=== PATIENT | male | born 1930 | race Caucasian/White ===

== ENCOUNTER → 2016-09-23 | Outpatient (CLI) | payer MEDICARE, OTHER ==
--- NOTE | 2016-09-23 16:59 | CT ---
EXAMINATION TYPE: CT chest wo con DATE OF EXAM: 09/23/2016 4:44 PM COMPARISON: CT chest March 17, 2016 HISTORY: Shortness of breath per order. CT DLP: 752 mGycm. Automated Exposure Control for Dose Reduction was Utilized. TECHNIQUE: CT scan of the thorax is performed without IV contrast. FINDINGS: LUNGS: The lungs are grossly clear, there is no concerning greater than 4 mm parenchymal mass or nodu le identified. Scattered tiny nodules in the right lower lobe are stable, for reference is 4 mm nodul e on axial image 31. Adjacent scattered micronodules are stable. There is additional micronodularity in the left lower lobe felt stable, for reference is 3 mm nodule on image 41. There is no pleural e ffusion or pneumothorax seen. The tracheobronchial tree is patent. MEDIASTINUM: Lack of IV contrast is noted to limit evaluation for mediastinal and especially hilar ad enopathy. There are no definitive greater than 1 cm hilar or mediastinal lymph nodes. No cardiomega ly or pericardial effusion is seen. Prominent Coronary artery calcification and/or stents in the LAD and RCA distribution are redemonstrated. There is mild to moderate calcified plaque of the descending aorta. Main pulmonary artery measures 3.0 cm in diameter on axial image 29 and is stable. Consider u nderlying pulmonary artery hypertension. Adjacent ascending aorta measures 3.2 cm in diameter OTHER: Calcified oval low dense lesion posterior aspect of liver on axial image 53 is stable and pres umed benign, etiology uncertain. There is multilevel spurring in the thoracic spine noted. IMPRESSION: Stable lower lung micronodularity presumed postinflammatory. No suspicious new mass or ad enopathy is noted.
== END | disposition home or self-care (01) ==
LOC: RADCTMAIN 16:20
PROVIDERS: ATTEND Internal Medicine Interventional Cardiology
DX: R91.8 Other nonspecific abnormal finding of lung field (principal)
CPT/HCPCS: 71250

== ENCOUNTER 2017-05-21 11:22 | Emergency (ER) | payer MEDICARE, OTHER ==
[2017-05-21 11:41] VITALS: RESP 16
--- NOTE | 2017-05-21 12:00 | ED ---
Headache HPI - General Chief Complaint: Headache Stated Complaint: Headache Time Seen by Provider: 05/21/17 11:43 Source: patient, RN notes reviewed Mode of arrival: ambulatory Limitations: no limitations - History of Present Illness Initial Comments: This is an 86-year-old male presents emergency Department chief complaint headache. Patient states his headache started around 8:00 this morning. Patient states that he has suffered with headaches in the past and has had come to the emergency department for them in the past. Patient does state that this is one of the worse headache he's had. Patient denies any fever, chills, neck pain or neck stiffness. He states he's had pain in his back in the past when he turns quickly but states he has no pain at this time. Patient denies chest pain, shortness breath, nausea, vomiting. He states he does have very mild for sensitivity. Patient denies taking any medications prior arrival. Patient states that he normally just takes Tylenol for his headaches. He states that he has had to go to [facility] the past and receive an injection which is helped. Patient states the headache is diffuse in nature and is not unilateral. Denies any extremity weakness. Patient's denies any confusion or any abnormal behavior. - Related Data Home Medications Medication Instructions Recorded Confirmed Aspirin 325 mg PO DAILY 04/26/14 05/21/17 Omeprazole [PriLOSEC] 20 mg PO AC-BRKFST 04/26/14 05/21/17 Potassium Chloride [Klor-Con 10] 10 meq PO DAILY 04/26/14 05/21/17 Sertraline HCl [Zoloft] 100 mg PO QAM 04/26/14 05/21/17 Simvastatin [Zocor] 40 mg PO HS 04/26/14 05/21/17 Terazosin [Hytrin] 5 mg PO HS 04/26/14 05/21/17 Atenolol [Tenormin] 25 mg PO DAILY 07/12/14 05/21/17 Multivitamins, Thera [Multivitamin 1 tab PO DAILY 05/23/15 05/21/17 (formulary)] Ascorbic Acid [Vitamin C] 500 mg PO DAILY 05/21/17 05/21/17 Fish Oil/Dha/Epa [Fish Oil 1,200 1 cap PO DAILY 05/21/17 05/21/17 mg Fish Oil] Naproxen Sodium [Aleve] 220 mg PO DAILY PRN 05/21/17 05/21/17 amLODIPine [Norvasc] 2.5 mg PO DAILY 05/21/17 05/21/17 Previous Rx's Medication Instructions Recorded Butalb/APAP/Caff 50-325-40Mg 1 tab PO Q4H PRN #10 tablet 05/21/17 [Fioricet 50-325-40] Allergies Allergy/AdvReac Type Severity Reaction Status Date / Time MSG AdvReac BLURRED Uncoded 05/21/17 12:01 VISION, HEADACHE Review of Systems ROS Statement: Those systems with pertinent positive or pertinent negative responses have been documented in the HPI. ROS Other: All systems not noted in ROS Statement are negative. Past Medical History Past Medical History: Coronary Artery Disease (CAD), Eye Disorder, GERD/Reflux, Hyperlipidemia, Hypertension, Skin Disorder, Sleep Apnea/CPAP/BIPAP Additional Past Medical History / Comment(s): currently having constipation, enlarged prostate, migraine,hypoglycemia, CATARACTS REMOVED FROM BOTH EYES, PT RECENTLY STARTED ON 2L OF OXYGEN AT NIGHTTIME ONLY History of Any Multi-Drug Resistant Organisms: None Reported Past Surgical History: Appendectomy, Back Surgery, Heart Catheterization With Stent Additional Past Surgical History / Comment(s): carotid, cataract removal, cardiac stentsx3,prostate procedure TURP, ABCESS IS ABD REMOVED, lumbar L4-L5 laminectomy with cage Past Anesthesia/Blood Transfusion Reactions: No Reported Reaction Date of Last Stent Placement:: 2000 Past Psychological History: No Psychological Hx Reported Smoking Status: Former smoker Past Alcohol Use History: None Reported Past Drug Use History: None Reported - Past Family History Mother Family Medical History: Myocardial Infarction ([place]) Father Family Medical History: Myocardial Infarction ([place]) Sister(s) Family Medical History: Cancer (Lung), Myocardial Infarction ([place]) Additional Family Medical History / Comment(s): 2 sisters colon ca,1 sister [place] Brother(s) Family Medical History: Cancer (:), Myocardial Infarction ([place]) Additional Family Medical History / Comment(s): 1 brother CA,1 brother [place] General Exam Limitations: no limitations General appearance: alert, in no apparent distress Head exam: Present: atraumatic, normocephalic, normal inspection Eye exam: Present: normal appearance, PERRL, EOMI. Absent: scleral icterus, conjunctival injection, periorbital swelling ENT exam: Present: normal exam, normal oropharynx, mucous membranes moist, TM's normal bilaterally, normal external ear exam Neck exam: Present: normal inspection, full ROM. Absent: tenderness, meningismus, lymphadenopathy Respiratory exam: Present: normal lung sounds bilaterally. Absent: respiratory distress, wheezes, rales, rhonchi, stridor Cardiovascular Exam: Present: regular rate, normal rhythm, normal heart sounds. Absent: systolic murmur, diastolic murmur, rubs, gallop, clicks Neurological exam: Present: alert, oriented X3, CN II-XII intact, reflexes normal, other (Finger to nose intact bilaterally without or shooting). Absent: motor sensory deficit Psychiatric exam: Present: normal affect, normal mood Skin exam: Present: warm, dry, intact, normal color. Absent: rash Course Vital Signs 05/21/17 11:38 Temperature 98.1 F Pulse Rate 65 Respiratory 16 Rate Blood Pressure 137/64 O2 Sat by Pulse 97 Oximetry Medical Decision Making - Medical Decision Making 86-year-old male present emergency department with chief complaint headache. Patient CT does not show an acute changes. Patient states he does feel improved and states his headache is resolving at this time. Patient states that he feels comfortable going home. He'll be discharged with Fioricet. Patient's not exam is within normal limits with no deficits. Disposition Clinical Impression: Migraine Disposition: HOME SELF-CARE Condition: Stable Instructions: Acute Headache (ED) Additional Instructions: Please return to the Emergency Department if symptoms worsen or any other concerns. Prescriptions: Butalb/APAP/Caff 50-325-40Mg [Fioricet 50-325-40] 1 tab PO Q4H PRN #10 tablet PRN Reason: Headache Referrals: Jefferson Day DO [Primary Care Provider] - 1-2 days Time of Disposition: 14:43
[2017-05-21] MEDS ORDERED: KETOROLAC 30 MG/ML 1 ML VIAL IVP STA (12:39)
[2017-05-21] MEDS ORDERED: ONDANSETRON 4 MG/2 ML VIAL IVP STA (12:39)
[2017-05-21] MEDS ORDERED: diphenhydrAMINE 50 MG/ML 1 ML VIAL IVP STA (12:39)
--- NOTE | 2017-05-21 12:53 | CT ---
EXAMINATION TYPE: CT brain wo con DATE OF EXAM: 05/21/2017 COMPARISON: NONE HISTORY: Headache CT DLP: 1064.30 mGycm Automated exposure control for dose reduction was used. Helical acquisition through the brain. FINDINGS: Mucosal thickening is present within the maxillary sinuses, ethmoid air cells. Calvarium is intact. P eriventricular white matter shows patchy low attenuation. No hemorrhage or hydrocephalus. Cerebral va scular calcifications are present. IMPRESSION: NO ACUTE BRAIN ABNORMALITY. SINUS DISEASE. PROBABLE CHRONIC SMALL ISCHEMIA.
[2017-05-21] MEDS ORDERED: MORPHINE SULFATE 2 MG/ML SYRINGE IVP ONE (13:47)
[2017-05-21] MEDS ORDERED: METOCLOPRAMIDE 5 MG/ML 2 ML VIAL IVP STA (13:47)
[2017-05-21 15:16] VITALS: BP 168/90; PULSE 51; TEMP 97.8
== END 2017-05-21 15:16 | disposition home or self-care (01) ==
LOC: EC 11:22
DX: G43.909 Migraine, unspecified, not intractable, without status migrainosus (principal); I25.10 Atherosclerotic heart disease of native coronary artery without angina pectoris; K21.9 Gastro-esophageal reflux disease without esophagitis; E78.5 Hyperlipidemia, unspecified; I10 Essential (primary) hypertension; Z87.891 Personal history of nicotine dependence; Z91.02 Food additives allergy status; Z79.82 Long term (current) use of aspirin; Z79.899 Other long term (current) drug therapy
CPT/HCPCS: 70450; 99283; 96374; 96375 ×4; J1200; J2765; J2405; J1885; J2270

== ENCOUNTER → 2017-08-31 | Outpatient (CLI) | payer MEDICARE, OTHER ==
[2017-08-31 18:41] LABS: Protein, Total 6.2 g/dL (6.2-8.2)
[2017-09-02 10:59] LABS: Albumin 3.89 g/dL (3.80-4.90); Gamma Globulin 0.79 g/dL (0.70-1.50)
== END | disposition home or self-care (01) ==
LOC: LABWHC1 13:39
PROVIDERS: ATTEND Family Medicine
DX: D61.89 Other specified aplastic anemias and other bone marrow failure syndromes (principal)
CPT/HCPCS: 36415; 84165

== ENCOUNTER 2017-09-30 09:12 | Emergency (ER) | payer MEDICARE, OTHER ==
[2017-09-30] MEDS ORDERED: RX INFO: IV CONTRAST WAS GIVEN 1 EACH MISC MISCELLANE PRN (10:21)
[2017-09-30] MEDS ORDERED: LABETALOL 5 MG/ML VIAL MDV IVP STA (10:23)
--- NOTE | 2017-09-30 10:41 | ED ---
Back Pain HPI - General Chief Complaint: Back Pain/Injury Stated Complaint: Back pain Time Seen by Provider: 09/30/17 10:04 Source: patient Limitations: no limitations - History of Present Illness Initial Comments: This 87-year-old white male presents with a complaint of some low back pain. This is to his bilateral lumbar spine. He denies any radiation of the pain. He has a long history of back problems with surgery by Dr. Drake about 10 years ago. He states that the pain has become worse over the past 2 months. It is worse with certain movements. He states that he has tried some Fioricet and some meloxicam without any significant relief. He is already seen his primary care physician, an voip network technician, a physical therapist, and Dr. Drake, the back surgeon in this regard. The patient and his state that the cause of the back pain is unknown. It has been fairly continuous. He is Jr received some injections into his back without any relief. He is also worried about the possibility of kidney stones causing his symptoms. He does complain of some urinary hesitancy and has had prostate problems in the past with prostate surgery. There is been no injuries or falls or trauma. No other complaints or modifying factors. He does have a long-standing history of high blood pressure. He previously was on lisinopril but his medical file clerk stopped it one month ago. He was on lisinopril 20 mg daily. His blood pressure is very elevated today. - Related Data Home Medications Medication Instructions Recorded Confirmed Aspirin 325 mg PO DAILY 04/26/14 09/30/17 Omeprazole [PriLOSEC] 20 mg PO AC-BRKFST 04/26/14 09/30/17 Potassium Chloride [Klor-Con 10] 10 meq PO DAILY 04/26/14 09/30/17 Sertraline HCl [Zoloft] 100 mg PO QAM 04/26/14 09/30/17 Simvastatin [Zocor] 40 mg PO HS 04/26/14 09/30/17 Terazosin [Hytrin] 5 mg PO HS 04/26/14 09/30/17 amLODIPine [Norvasc] 2.5 mg PO DAILY 05/21/17 09/30/17 Atenolol [Tenormin] 50 mg PO DAILY 09/30/17 09/30/17 Previous Rx's Medication Instructions Recorded traMADol HCl [Ultram] 50 - 100 mg PO Q6H PRN #20 tab 09/30/17 Allergies Allergy/AdvReac Type Severity Reaction Status Date / Time MSG AdvReac BLURRED Uncoded 05/21/17 12:01 VISION, HEADACHE Review of Systems ROS Statement: Those systems with pertinent positive or pertinent negative responses have been documented in the HPI. ROS Other: All systems not noted in ROS Statement are negative. Past Medical History Past Medical History: Coronary Artery Disease (CAD), Eye Disorder, GERD/Reflux, Hyperlipidemia, Hypertension, Skin Disorder, Sleep Apnea/CPAP/BIPAP Additional Past Medical History / Comment(s): currently having constipation, enlarged prostate, migraine,hypoglycemia, CATARACTS REMOVED FROM BOTH EYES, PT RECENTLY STARTED ON 2L OF OXYGEN AT NIGHTTIME ONLY History of Any Multi-Drug Resistant Organisms: None Reported Past Surgical History: Appendectomy, Back Surgery, Heart Catheterization With Stent Additional Past Surgical History / Comment(s): carotid, cataract removal, cardiac stentsx3,prostate procedure TURP, ABCESS IS ABD REMOVED, lumbar L4-L5 laminectomy with cage Past Anesthesia/Blood Transfusion Reactions: No Reported Reaction Date of Last Stent Placement:: 2000 Past Psychological History: No Psychological Hx Reported Smoking Status: Former smoker Past Alcohol Use History: None Reported Past Drug Use History: None Reported - Past Family History Mother Family Medical History: Myocardial Infarction (OR) Father Family Medical History: Myocardial Infarction (OR) Sister(s) Family Medical History: Cancer (Lung), Myocardial Infarction (OR) Additional Family Medical History / Comment(s): 2 sisters colon ca,1 sister OR Brother(s) Family Medical History: Cancer (:), Myocardial Infarction (OR) Additional Family Medical History / Comment(s): 1 brother CA,1 brother OR General Exam - General Exam Comments Initial Comments: GENERAL: The patient is well nourished and well hydrated. VITAL SIGNS: Heart rate, blood pressure, respiratory rate reviewed as recorded in nurse's notes. EYES: Pupils are round and reactive. Extraocular movements are intact. No conjunctival / lid redness or swelling. ENT: No external evidence of injury, swelling, or ecchymosis. Airway is patent. Throat is clear. NECK: Nontender. No swelling or evidence of injury. No subcutaneous emphysema. Trachea is midline. No thyroid mass. HEART: Regular rate and rhythm. Good peripheral pulses. LUNGS/CHEST: Breath sounds clear and equal bilaterally. No rales, rhonchi, or wheezes. No ecchymosis, subcutaneous emphysema, or tenderness. ABDOMEN: Abdomen soft without tenderness. No palpable masses or organomegaly. No peritoneal signs. No abdominal wall swelling or ecchymosis. EXTREMITIES: No extremity tenderness. Normal muscle tone and function. There is some mild tenderness in the perilumbar musculature. NEUROLOGIC: Sensation is grossly intact. Cranial nerve exam reveals face is symmetrical, tongue is midline, speech is clear. SKIN: No abrasions or ecchymosis is noted. No induration or masses noted. PSYCHIATRIC: Alert and oriented. Appropriate behavior and judgment. Limitations: no limitations Course Vital Signs 09/30/17 09/30/17 09/30/17 09:20 09:38 10:46 Temperature 98.2 F Pulse Rate 62 58 L 57 L Respiratory 18 14 16 Rate Blood Pressure 220/96 205/133 237/107 O2 Sat by Pulse 96 95 94 L Oximetry 09/30/17 09/30/17 09/30/17 11:29 11:59 12:23 Temperature Pulse Rate 58 L 58 L Respiratory 16 16 Rate Blood Pressure 190/100 234/124 199/81 O2 Sat by Pulse 95 97 Oximetry 09/30/17 09/30/17 12:44 13:06 Temperature Pulse Rate 59 L 59 L Respiratory 18 16 Rate Blood Pressure 192/107 193/82 O2 Sat by Pulse 95 96 Oximetry Medical Decision Making - Medical Decision Making The patient was seen and examined. All diagnostics are reviewed. He states that he does not want anything for the pain as he is not having any significant pain currently. He rates his pain at approximately 3 out of 10. He states that he took his blood pressure medications just prior to coming into the ER today. His computed tomography scan of the abdomen and pelvis overall is fairly unremarkable but does show some postoperative changes to the lumbar spine. He also had a laboratory analysis which shows mild anemia but otherwise no acute processes. The urinalysis is negative. The exact cause of his pain is not definitively determined. [facility] and they relate that they don't think he is a good surgical candidate for further back procedures. It sounds as though there is certainly some pathology there noted by MRI scan one month ago although family does not seem aware of the exact cause of his pain. He apparently has had problems with [place] in the past. He will be tried on some Ultram. Return parameters are discussed. Is felt as though he should follow-up with Dr. Drake once again for further delineation of his condition and possible fine-tuning of symptom control. He does receive some labetalol and hydralazine for blood pressure control. His blood pressure does come down. It is felt as though she should continue with the lisinopril medication once again. He had been on it for years previously. Return parameters are discussed in detail. - Lab Data Result diagrams: 09/30/17 09:50 09/30/17 09:50 Lab Results 09/30/17 09/30/17 09/30/17 Range/Units 09:50 09:50 12:25 WBC 4.2 (3.8-10.6) k/uL RBC 3.95 L (4.30-5.90) m/uL Hgb 12.5 L (13.0-17.5) gm/dL Hct 35.4 L (39.0-53.0) % MCV 89.7 (80.0-100.0) fL MCH 31.8 (25.0-35.0) pg MCHC 35.5 (31.0-37.0) g/dL RDW 13.3 (11.5-15.5) % Plt Count 162 (150-450) k/uL Neutrophils % 59 % Lymphocytes % 29 % Monocytes % 6 % Eosinophils % 5 % Basophils % 1 % Neutrophils # 2.5 (1.3-7.7) k/uL Lymphocytes # 1.2 (1.0-4.8) k/uL Monocytes # 0.3 (0-1.0) k/uL Eosinophils # 0.2 (0-0.7) k/uL Basophils # 0.0 (0-0.2) k/uL Hyperchromasia Slight Sodium 140 (137-145) mmol/L Potassium 4.0 (3.5-5.1) mmol/L Chloride 101 (98-107) mmol/L Carbon Dioxide 27 (22-30) mmol/L Anion Gap 12 mmol/L BUN 16 (9-20) mg/dL Creatinine 0.90 (0.66-1.25) mg/dL Est GFR (CKD-EPI)AfAm 88 (>60 ml/min/1.73 sqM) Est GFR (CKD-EPI)NonAf 76 (>60 ml/min/1.73 sqM) Glucose 107 H (74-99) mg/dL Calcium 9.1 (8.4-10.2) mg/dL Urine Color Light Yellow Urine Appearance Clear (Clear) Urine pH 7.0 (5.0-8.0) Ur Specific [place] 1.013 (1.001-1.035) Urine Protein Negative (Negative) Urine Glucose (UA) Negative (Negative) Urine Ketones Negative (Negative) Urine Blood Negative (Negative) Urine Nitrite Negative (Negative) Urine Bilirubin Negative (Negative) Urine Urobilinogen <2.0 (<2.0) mg/dL Ur Leukocyte Esterase Negative (Negative) Disposition Clinical Impression: Chronic back pain, Hypertension, Anemia Disposition: HOME SELF-CARE Condition: Good Instructions: Chronic Back Pain (ED), Hypertension (ED) Prescriptions: traMADol HCl [Ultram] 50 - 100 mg PO Q6H PRN #20 tab PRN Reason: Pain Referrals: Jefferson Day DO [Primary Care Provider] - 1-2 days Time of Disposition: 13:14
[2017-09-30 10:42] LABS: Basophils % (A) 1 %; Eosinophils # (A) 0.2 k/uL (0-0.7); Eosinophils % (A) 5 %; HCT 35.4 % (39.0-53.0); HGB 12.5 gm/dL (13.0-17.5); Hyperchromasia Slight; Lymphocytes # (A) 1.2 k/uL (1.0-4.8); Lymphocytes % (A) 29 %; MCH 31.8 pg (25.0-35.0); MCHC 35.5 g/dL (31.0-37.0); MCV 89.7 fL (80.0-100.0); Mean Platelet Volume 7.5; Monocytes # (A) 0.3 k/uL (0-1.0); Monocytes % (A) 6 %; Neutrophils # (A) 2.5 k/uL (1.3-7.7); Neutrophils % (A) 59 %; Platelet Count 162 k/uL (150-450); RBC 3.95 m/uL (4.30-5.90); RDW 13.3 % (11.5-15.5); WBC 4.2 k/uL (3.8-10.6)
[2017-09-30 10:51] LABS: Calcium 9.1 mg/dL (8.4-10.2)
[2017-09-30] MEDS ORDERED: hydrALAZINE HCL 20 MG/ML 1 ML VIAL IVP STA ×2 (11:45→12:15)
--- NOTE | 2017-09-30 11:48 | CT ---
EXAMINATION TYPE: CT abdomen pelvis w con DATE OF EXAM: 09/30/2017 COMPARISON: CT abdomen pelvis November 16, 2015. HISTORY: Abdominal and back pain. R/o renal stones, r/o aneurysm CT DLP: 1802 mGycm, Automated Exposure Control for Dose Reduction was Utilized. CONTRAST: CT scan of the abdomen and pelvis is performed with oral and with IV Contrast, patient injected with 100 mL of Isovue 300. FINDINGS: LUNG BASES: Slightly nodular infiltrates anteriorly right lung base remains present on upper axial im ages. There is persistent right lateral linear scarring. Additional tiny scattered nodules in the lef t lower lobe are redemonstrated. Largest measures 5 x 4 mm subpleural level axial image 11. No signif icant change from prior exam is noted. Coronary artery calcification and/or stents are again seen. LIVER/GB: There is stable oval low dense lesion posterior medial aspect of hepatic dome with posterio r calcifications measuring 2.9 x 1.2 cm. Favored benign. PANCREAS: Some mild fat replaced atrophy of pancreas is again seen. SPLEEN: There is 1.0 centimeters splenule anteriorly in splenic hilum axial image 27 redemonstrated. ADRENALS: There is stable 1.1 cm central nodule right adrenal gland axial image 29. There is simple a ppearing 1 cm cyst right kidney mid pole level. There are few additional subcentimeter low dense lesi ons throughout the right kidney. There is subcentimeter hyperdense lesion laterally mid pole level le ft kidney axial image 45 felt to reflect small proteinaceous cyst unchanged from prior. There is retr oaortic left renal vein which is normal variant redemonstrated. KIDNEYS: No significant abnormality is seen. BOWEL: Evaluation bowel is slightly suboptimal secondary to lack of enteric contrast. There is no eunice picious small or large bowel dilatation seen. There is some redundancy of sigmoid colon identified. D iverticula in the sigmoid colon are redemonstrated. There is no CT evidence for acute diverticulitis. PROSTATE/SEMINAL VESICLES: Prostate gland is enlarged in size bulging on bladder base, underlying BPH is suspected.. LYMPH NODES: No greater than 1cm abdominal or pelvic lymph nodes are appreciated. OSSEOUS STRUCTURES: There are bilateral interpedicular rods and screws transfixing L4-S1 levels rede monstrated. There is slight grade 1 anterolisthesis of L5 on S1 redemonstrated. Alignment is stable. OTHER: There is moderate to severe atherosclerotic change of aorta extending into iliac branch vessel s. There is new 1.0 x 0.8 cm nodularity along course of the draining right gonadal vein axial image 59 c ould reflect adjacent prominent lymph node. Consider short-term CT follow-up in 3-6 months time to re assess. IMPRESSION: No significant new or acute finding is seen to account for patient's clinical symptoms. Postsurgical changes lower lumbar spine redemonstrated. Other findings as noted above.
[2017-09-30 12:35] LABS: Appearance,Urine Clear (Clear); Bilirubin,Urine Negative (Negative); Blood,Urine Negative (Negative); Color,Urine Light Yellow; Glucose,Urine (UA) Negative (Negative); Ketones,Urine Negative (Negative); Leukocyte Esterase,Urine Negative (Negative); Nitrite,Urine Negative (Negative); Protein,Urine Negative (Negative); Specific Gravity,Urine 1.013 (1.001-1.035); Urobilinogen,Urine <2.0 mg/dL (<2.0)
[2017-09-30 13:07] VITALS: RESP 16
[2017-09-30 13:28] VITALS: BP 171/75; PULSE 85; TEMP 98
== END 2017-09-30 13:31 | disposition home or self-care (01) ==
LOC: EC 09:12
DX: M54.9 Dorsalgia, unspecified (principal); G89.29 Other chronic pain; I10 Essential (primary) hypertension; D64.9 Anemia, unspecified; I25.10 Atherosclerotic heart disease of native coronary artery without angina pectoris; K21.9 Gastro-esophageal reflux disease without esophagitis; E78.5 Hyperlipidemia, unspecified; G47.30 Sleep apnea, unspecified; Z99.89 Dependence on other enabling machines and devices; Z87.891 Personal history of nicotine dependence; Z79.82 Long term (current) use of aspirin; Z79.899 Other long term (current) drug therapy; Z88.8 Allergy status to other drugs, medicaments and biological substances
CPT/HCPCS: 36415; 74177; 80048; 81003; 85025; 96374; 96375; 96376; 99284

== ENCOUNTER 2017-09-30 13:53 | Inpatient (IN) | payer MEDICARE, OTHER ==
[2017-09-30] MEDS ORDERED: SODIUM CHLORIDE 0.9% 1,000 ML IV STA (14:19)
[2017-09-30 14:41] LABS: Basophils % (A) 0 %; Eosinophils # (A) 0.1 k/uL (0-0.7); Eosinophils % (A) 3 %; HCT 37.7 % (39.0-53.0); HGB 13.3 gm/dL (13.0-17.5); Lymphocytes # (A) 1.6 k/uL (1.0-4.8); Lymphocytes % (A) 34 %; MCHC 35.4 g/dL (31.0-37.0); MCV 90.6 fL (80.0-100.0); Mean Platelet Volume 8.4; Monocytes # (A) 0.3 k/uL (0-1.0); Monocytes % (A) 6 %; Neutrophils # (A) 2.7 k/uL (1.3-7.7); Neutrophils % (A) 56 %; Platelet Count 160 k/uL (150-450); RBC 4.16 m/uL (4.30-5.90); RDW 13.4 % (11.5-15.5); WBC 4.9 k/uL (3.8-10.6)
[2017-09-30 14:50] LABS: ALT 22 U/L (21-72); AST 21 U/L (17-59); Albumin 3.9 g/dL (3.5-5.0); Alkaline Phosphatase 65 U/L (38-126); Anion Gap 12 mmol/L; Blood Urea Nitrogen 15 mg/dL (9-20); Carbon Dioxide 27 mmol/L (22-30); Chloride 101 mmol/L (98-107); Glucose 117 mg/dL (74-99); Potassium 3.4 mmol/L (3.5-5.1); Sodium 140 mmol/L (137-145); Total Bilirubin 0.5 mg/dL (0.2-1.3); Total Protein 6.3 g/dL (6.3-8.2)
[2017-09-30 14:51] LABS: INR 1.1 (<1.2); Partial Thromboplastin Time 23.4 sec (22.0-30.0); Prothrombin Time 10.9 sec (9.0-12.0)
--- NOTE | 2017-09-30 15:06 | CT ---
EXAMINATION TYPE: CT brain wo con DATE OF EXAM: 09/30/2017 COMPARISON: 05/21/2017 HISTORY: 87-year-old male with left sided facial and hand numbness. TECHNIQUE: Examination was done in axial plane without intravenous contrast. Coronal and sagittal r econstructions performed. CT DLP: 1029.9 mGycm Automated exposure control for dose reduction was used. FINDINGS: There is no evidence of acute intracranial hemorrhage, acute ischemic changes, mass, mass-effect, or extra-axial fluid collection. There is no effacement of cerebral sulci or basal subarachnoid cister ns. There is no hydrocephalus. There is no midline shift. Winston-white matter distinction is preserv ed. There is moderate confluent white matter hypodensity in both cerebral hemispheres. Mild central cereb ral volume loss. Paranasal sinuses and mastoid air cells are well pneumatized. Orbits and globes are intact. IMPRESSION: No acute intracranial abnormality seen. Stable moderate confluent changes of chronic small vessel isc hemic disease and mild atrophy.
[2017-09-30 15:15] LABS: Creatine Kinase MB 1.9 ng/mL (0.0-2.4); Troponin I 0.016 ng/mL (0.000-0.034)
--- NOTE | 2017-09-30 15:25 | XR ---
EXAMINATION TYPE: XR chest 2V DATE OF EXAM: 09/30/2017 COMPARISON: CT chest March 17, 2016. Chest x-ray February 23, 2016. HISTORY: Right-sided pain and numbness. TECHNIQUE: Frontal and lateral views of the chest are obtained. FINDINGS: There is no focal air space opacity, pleural effusion, or pneumothorax seen. The cardiac silhouette size is stable and mildly enlarged. Moderate spurring mid to lower thoracic spine is prese nt. IMPRESSION: Mild cardiomegaly without acute pulmonary process.
--- NOTE | 2017-09-30 16:31 | ED ---
Neuro HPI - General Chief Complaint: Neuro Symptoms/Deficit Stated Complaint: left sided numbness Time Seen by Provider: 09/30/17 14:10 Source: patient Mode of arrival: wheelchair Limitations: no limitations - History of Present Illness Is the patient presenting with stroke symptoms?: No Initial Comments: 87 years old male was just discharged from the hospital he was seen here for the back pain he was waiting for his right that he noticed that his left hand is numb there was weak and family noticed that he has a left-sided facial droop he was not able to talk and patient also added that his lips felt there were no acute time I seen him in the ER, although symptoms had resolved facial droop had resolved he was able to talk he was able to comprehend review of system is totally unremarkable no headaches no blurred vision no chest pain or shortness of breath no abdominal pain no frequency urgency dysuria no symptoms of TIA or CVA - Related Data Home Medications: Home Medications Medication Instructions Recorded Confirmed Aspirin 325 mg PO DAILY 04/26/14 09/30/17 Omeprazole [PriLOSEC] 20 mg PO AC-BRKFST 04/26/14 09/30/17 Potassium Chloride [Klor-Con 10] 10 meq PO DAILY 04/26/14 09/30/17 Sertraline HCl [Zoloft] 100 mg PO QAM 04/26/14 09/30/17 Simvastatin [Zocor] 40 mg PO HS 04/26/14 09/30/17 Terazosin [Hytrin] 5 mg PO HS 04/26/14 09/30/17 amLODIPine [Norvasc] 2.5 mg PO DAILY 05/21/17 09/30/17 Atenolol [Tenormin] 50 mg PO DAILY 09/30/17 09/30/17 Previous Rx's Medication Instructions Recorded traMADol HCl [Ultram] 50 - 100 mg PO Q6H PRN #20 tab 09/30/17 Allergies/Adverse Reactions: Allergies Allergy/AdvReac Type Severity Reaction Status Date / Time MSG AdvReac BLURRED Uncoded 09/30/17 14:00 VISION, HEADACHE Review of Systems ROS Statement: Those systems with pertinent positive or pertinent negative responses have been documented in the HPI. ROS Other: All systems not noted in ROS Statement are negative. General Exam Limitations: no limitations Stroke MDM - Lab Data Result diagrams: 09/30/17 14:25 09/30/17 14:25 Lab Results 09/30/17 09/30/17 09/30/17 Range/Units 14:25 14:25 14:25 WBC 4.9 (3.8-10.6) k/uL RBC 4.16 L (4.30-5.90) m/uL Hgb 13.3 (13.0-17.5) gm/dL Hct 37.7 L (39.0-53.0) % MCV 90.6 (80.0-100.0) fL MCH 32.0 (25.0-35.0) pg MCHC 35.4 (31.0-37.0) g/dL RDW 13.4 (11.5-15.5) % Plt Count 160 (150-450) k/uL Neutrophils % 56 % Lymphocytes % 34 % Monocytes % 6 % Eosinophils % 3 % Basophils % 0 % Neutrophils # 2.7 (1.3-7.7) k/uL Lymphocytes # 1.6 (1.0-4.8) k/uL Monocytes # 0.3 (0-1.0) k/uL Eosinophils # 0.1 (0-0.7) k/uL Basophils # 0.0 (0-0.2) k/uL PT (9.0-12.0) sec INR (<1.2) APTT (22.0-30.0) sec Sodium 140 (137-145) mmol/L Potassium 3.4 L (3.5-5.1) mmol/L Chloride 101 (98-107) mmol/L Carbon Dioxide 27 (22-30) mmol/L Anion Gap 12 mmol/L BUN 15 (9-20) mg/dL Creatinine 0.84 (0.66-1.25) mg/dL Est GFR (CKD-EPI)AfAm >90 (>60 ml/min/1.73 sqM) Est GFR (CKD-EPI)NonAf 78 (>60 ml/min/1.73 sqM) Glucose 117 H (74-99) mg/dL Calcium 9.0 (8.4-10.2) mg/dL Total Bilirubin 0.5 (0.2-1.3) mg/dL AST 21 (17-59) U/L ALT 22 (21-72) U/L Alkaline Phosphatase 65 (38-126) U/L Total Creatine Kinase 136 (55-170) U/L CK-MB (CK-2) 1.9 (0.0-2.4) ng/mL CK-MB (CK-2) Rel Index 1.4 Troponin I 0.016 (0.000-0.034) ng/mL Total Protein 6.3 (6.3-8.2) g/dL Albumin 3.9 (3.5-5.0) g/dL 09/30/17 Range/Units 14:25 WBC (3.8-10.6) k/uL RBC (4.30-5.90) m/uL Hgb (13.0-17.5) gm/dL Hct (39.0-53.0) % MCV (80.0-100.0) fL MCH (25.0-35.0) pg MCHC (31.0-37.0) g/dL RDW (11.5-15.5) % Plt Count (150-450) k/uL Neutrophils % % Lymphocytes % % Monocytes % % Eosinophils % % Basophils % % Neutrophils # (1.3-7.7) k/uL Lymphocytes # (1.0-4.8) k/uL Monocytes # (0-1.0) k/uL Eosinophils # (0-0.7) k/uL Basophils # (0-0.2) k/uL PT 10.9 (9.0-12.0) sec INR 1.1 (<1.2) APTT 23.4 (22.0-30.0) sec Sodium (137-145) mmol/L Potassium (3.5-5.1) mmol/L Chloride (98-107) mmol/L Carbon Dioxide (22-30) mmol/L Anion Gap mmol/L BUN (9-20) mg/dL Creatinine (0.66-1.25) mg/dL Est GFR (CKD-EPI)AfAm (>60 ml/min/1.73 sqM) Est GFR (CKD-EPI)NonAf (>60 ml/min/1.73 sqM) Glucose (74-99) mg/dL Calcium (8.4-10.2) mg/dL Total Bilirubin (0.2-1.3) mg/dL AST (17-59) U/L ALT (21-72) U/L Alkaline Phosphatase (38-126) U/L Total Creatine Kinase (55-170) U/L CK-MB (CK-2) (0.0-2.4) ng/mL CK-MB (CK-2) Rel Index Troponin I (0.000-0.034) ng/mL Total Protein (6.3-8.2) g/dL Albumin (3.5-5.0) g/dL Past Medical History Past Medical History: Coronary Artery Disease (CAD), Eye Disorder, GERD/Reflux, Hyperlipidemia, Hypertension, Skin Disorder, Sleep Apnea/CPAP/BIPAP Additional Past Medical History / Comment(s): currently having constipation, enlarged prostate, migraine,hypoglycemia, CATARACTS REMOVED FROM BOTH EYES, PT RECENTLY STARTED ON 2L OF OXYGEN AT NIGHTTIME ONLY History of Any Multi-Drug Resistant Organisms: None Reported Past Surgical History: Appendectomy, Back Surgery, Heart Catheterization With Stent Additional Past Surgical History / Comment(s): carotid, cataract removal, cardiac stentsx3,prostate procedure TURP, ABCESS IS ABD REMOVED, lumbar L4-L5 laminectomy with cage Past Anesthesia/Blood Transfusion Reactions: No Reported Reaction Date of Last Stent Placement:: 2000 Past Psychological History: No Psychological Hx Reported Smoking Status: Former smoker Past Alcohol Use History: None Reported Past Drug Use History: None Reported - Past Family History Mother Family Medical History: Myocardial Infarction ([place]) Father Family Medical History: Myocardial Infarction [place]) Sister(s) Family Medical History: Cancer (Lung), Myocardial Infarction ([place]) Additional Family Medical History / Comment(s): 2 sisters colon ca,1 sister [place] Brother(s) Family Medical History: Cancer (:), Myocardial Infarction ([place]) Additional Family Medical History / Comment(s): 1 brother CA,1 brother [place] Course Vital Signs 09/30/17 09/30/17 13:57 15:32 Temperature 97.7 F Pulse Rate 66 59 L Respiratory 18 16 Rate Blood Pressure 141/65 173/77 O2 Sat by Pulse 96 95 Oximetry MG is normal sinus rhythm ventricular rate is 61 AL interval is 202 QRS duration is 94 QT/QTc is 458/461 review of this EKG reveals slight ST depression in lead 1 and 2 noticed some flattening of the T-wave in V5 and V6 no ST elevation or significant ST depression noticed in On reassessment was now noticed CBC, INR, troponin, comp his metabolic panel, head CT, chest x-ray are unremarkable Critical Care Time Total Critical Care Time: 60 Critical Care Time: Patient came in originally for the back pain is blood pressure was high his blood pressure was [address] is normal his troponin is normal but he had a significant facial droop him and admit him to Dr. Ross's service and will consult neurology and wanted try to help him with his hypertension very gradually to avoid any secondary ischemic changes and aggravating his CVA like symptoms Disposition Clinical Impression: Hypertension, TIA (transient ischemic attack) Disposition: ADMITTED IP TO THIS HOSP Condition: Good Referrals: Jefferson Day DO [Primary Care Provider] - 1-2 days
[2017-09-30] MEDS ORDERED: MORPHINE SULFATE/PF 10MG/10ML VL IVP STA (16:38)
[2017-09-30] MEDS ORDERED: ONDANSETRON 4 MG/2 ML VIAL IVP PRN (16:38)
[2017-09-30] MEDS ORDERED: NALOXONE 0.4 MG/ML 1 ML VIAL IV PRN (16:38)
[2017-09-30] MEDS ORDERED: traMADol 50 MG TAB PO PRN (16:44)
[2017-09-30] MEDS ORDERED: LABETALOL 5 MG/ML VIAL MDV IVP SCH (16:45)
[2017-09-30] MEDS: LABETALOL 5 MG/ML VIAL MDV IV STA ×2 (16:54→17:23)
[2017-09-30] MEDS ORDERED: hydrALAZINE HCL 20 MG/ML 1 ML VIAL IVP STA (18:04)
--- NOTE | 2017-09-30 20:47 | P.CNNES ---
History of Present Illness Consult date: 09/30/17 Reason for Consult: Patient with left sided facial droop and left hand numbness. Possible TIA. History of Present Illness: This patient is a 87-year-old right-handed white male who was seen in the emergency room earlier today by Dr. Mckinley for evaluation of back pain. Patient has a history of having chronic low back pain for the past 3 months. He has been seen in the orthopedic spine surgery clinic by Dr. Drake. Apparently 2 weeks ago he was seen by Dr. Chapin and underwent a epidural injection for chronic low back pain. Patient apparently stated this injection was of no help. He has a history of having undergone a lumbar laminectomy at L4-L5 level with cage placement. Apparently he underwent a recent MRI of the lumbar spine which was reviewed by Dr. Drake. Patient states the pain was so intractable over the last few days he decided to come to the emergency room as he was not getting any relief for his pain symptoms. He was seen in the ER by Dr. Mckinley. He was given some pain medication is being readied for discharge to home when he apparently developed sudden onset of left hand numbness as well as left facial droop. This was noted by his daughter who is at bedside. The entire episode lasted for at least 5-10 minutes in duration. He was sent for a computed tomography scan of the brain immediately following this event which revealed no acute intracranial abnormality. Stable moderate confluent and chronic small vessel ischemic changes were noted with mild atrophy. It was recommended patient be admitted to hospital for further evaluation of TIA. His symptoms did resolve within 15 minutes but clearly according to the daughter and he showed signs of aphasia with expressive deficits as well as word finding difficulties. The daughter noticed the facial droop for at least 2-3 minutes in duration which slowly resolved. Patient does have a history of having undergone a left carotid endarterectomy in 2008. He also has significant coronary artery disease and has had placement of 4 stents. He does take aspirin 325 mg daily for secondary stroke prevention. He is not [place] to the hospital and neurology has been consulted for further evaluation and recommendations. Review of Systems Constitutional: Denies chills, Denies fever Eyes: denies blurred vision, denies pain Ears, nose, mouth and throat: Denies headache, Denies sore throat Cardiovascular: Denies chest pain, Denies shortness of breath Respiratory: Denies cough Gastrointestinal: Denies abdominal pain, Denies diarrhea, Denies nausea, Denies vomiting Musculoskeletal: Denies myalgias Integumentary: Denies pruritus, Denies rash Neurological: Reports aphasia, Reports change in mentation, Reports change in speech, Reports confusion, Reports paresthesias, Reports tingling, Denies numbness, Denies weakness Psychiatric: Denies anxiety, Denies depression Endocrine: Denies fatigue, Denies weight change Past Medical History Past Medical History: Coronary Artery Disease (CAD), Eye Disorder, Hyperlipidemia, Hypertension, Skin Disorder, Sleep Apnea/CPAP/BIPAP Additional Past Medical History / Comment(s): currently having constipation, enlarged prostate, migraine,hypoglycemia, CATARACTS REMOVED FROM BOTH EYES, PT RECENTLY STARTED ON 2L OF OXYGEN AT NIGHTTIME ONLY History of Any Multi-Drug Resistant Organisms: None Reported Past Surgical History: Appendectomy, Back Surgery, Heart Catheterization With Stent Additional Past Surgical History / Comment(s): carotid, cataract removal, cardiac stentsx3, lumbar L4-L5 laminectomy with cage Past Anesthesia/Blood Transfusion Reactions: No Reported Reaction Date of Last Stent Placement:: 2000 Past Psychological History: No Psychological Hx Reported Smoking Status: Former smoker Past Alcohol Use History: None Reported Additional Past Alcohol Use History / Comment(s): quit smoking 1963,started smoking 1944 Past Drug Use History: None Reported - Past Family History Mother Family Medical History: Myocardial Infarction ([place]) Father Family Medical History: [place]ocardial Infarction ([place]) Sister(s) Family Medical History: Cancer, Myocardial Infarction ([place]) Additional Family Medical History / Comment(s): 2 sisters colon ca,1 sister [place] Brother(s) Family Medical History: Cancer, Myocardial Infarction ([place]) Additional Family Medical History / Comment(s): 1 brother [place],1 brother [place] Medications and Allergies Home Medications Medication Instructions Recorded Confirmed Type Aspirin 325 mg PO DAILY 04/26/14 09/30/17 History Omeprazole [PriLOSEC] 20 mg PO AC-BRKFST 04/26/14 09/30/17 History Potassium Chloride [Klor-Con 10] 10 meq PO DAILY 04/26/14 09/30/17 History Sertraline HCl [Zoloft] 100 mg PO QAM 04/26/14 09/30/17 History Simvastatin [Zocor] 40 mg PO HS 04/26/14 09/30/17 History Terazosin [Hytrin] 5 mg PO HS 04/26/14 09/30/17 History amLODIPine [Norvasc] 2.5 mg PO DAILY 05/21/17 09/30/17 History Atenolol [Tenormin] 50 mg PO DAILY 09/30/17 09/30/17 History traMADol HCl [Ultram] 50 - 100 mg PO Q6H PRN #20 tab 09/30/17 09/30/17 Rx Allergies Allergy/AdvReac Type Severity Reaction Status Date / Time MSG AdvReac BLURRED Uncoded 09/30/17 14:00 VISION, HEADACHE Physical Examination - Vital Signs Vital Signs: Vital Signs Temp Pulse Pulse Resp BP Pulse Ox 09/30/17 18:42 100 09/30/17 18:28 71 16 182/96 96 09/30/17 17:58 66 19 204/81 98 09/30/17 17:22 60 16 209/88 97 09/30/17 16:58 62 16 203/87 98 09/30/17 16:50 63 16 196/96 97 09/30/17 16:48 68 18 196/84 98 09/30/17 15:32 59 L 16 173/77 95 09/30/17 13:57 97.7 F 66 18 141/65 96 Intake and Output 09/30/17 09/30/17 09/30/17 06:59 14:59 22:59 Other: Weight 92.533 kg - Constitutional General appearance: average body habitus, cooperative - EENT EENT: PERRL, mucous membranes moist - Respiratory Respiratory: lungs clear, normal breath sounds - Cardiovascular Cardiovascular: regular rate, normal S1, normal S2 Extremities: no peripheral edema bilaterally - Gastrointestinal Gastrointestinal: normoactive bowel sounds - Integumentary Integumentary: normal - Neurologic Cranial nerve examination: PERRL, EOMI, VFF, V1/V2/V3 grossly intact, face symmetric, intact shoulder shrug, intact gag reflex, intact corneal reflex, normal palatal elevation Speech examination: intact Sensorimotor examination: intact Motor examination - right side: 4/5: biceps, triceps, wrist flexion, wrist extension, hotel or motel cleaning supervisor, hip flexors, knee extensors, dorsiflexion, toe extension (EHL) , plantarflexion Motor examination - left side: 4/5: biceps, triceps, wrist flexion, wrist extension, hotel or motel cleaning supervisor, hip flexors, knee extensors, dorsiflexion, toe extension (EHL) , plantarflexion Detailed sensory examination: intact Reflex and gait examination: intact Reflexes: 1+: ankle, bicep, knee, tricep - Musculoskeletal Musculoskeletal: no pain - Psychiatric Psychiatric: mood/affect appropriate, cooperative Results - Laboratory Findings CBC and BMP: 09/30/17 14:25 09/30/17 14:25 Abnormal Lab Findings: Abnormal Labs 09/30/17 09/30/17 14:25 14:25 RBC 4.16 L Hct 37.7 L Potassium 3.4 L Glucose 117 H Assessment and Plan (1) Acute right arterial ischemic stroke, MCA (middle cerebral artery) Current Visit: Yes Status: Acute Code(s): I63.511 - CEREB INFRC D/T UNSP OCCLS OR STENOS OF RIGHT MID CEREB ART SNOMED Code(s): 265778239 (2) Hypertension Current Visit: Yes Status: Acute Code(s): I10 - ESSENTIAL (PRIMARY) HYPERTENSION SNOMED Code(s): 04520998 (3) Chronic back pain Current Visit: No Status: Acute Code(s): M54.9 - DORSALGIA, UNSPECIFIED; G89.29 - OTHER CHRONIC PAIN SNOMED Code(s): 283581451 (4) Unstable angina Current Visit: No Status: Acute Code(s): I20.0 - UNSTABLE ANGINA SNOMED Code(s): 3662457 Plan: This patient is a 87-year-old male who was initially brought to the emergency room today for evaluation of chronic and intractable back pain. Has a history of having undergone a lumbar laminectomy at L4-L5 level with placement of a cage. He has been followed in the orthopedic spine clinic by Dr. Drake. Currently he was seen there about 2 weeks ago and was sent for epidural injections performed by Dr. Chapin. Patient states this injection did not help and his pain symptoms worsen. He was evaluated in the ER by Dr. Mckinley. He was given some pain medication and is being getting ready for discharge from the ER when he developed left arm numbness as well as left facial droop. He was sent for a computed tomography scan of the brain immediately which results are as noted above. No acute findings were noted. He was admitted to hospital for further evaluation of TIA versus stroke. Discography history suggests right hemispheric TIA as a cause of his current symptoms. We would recommend a complete stroke evaluation for the patient. He has multiple stroke risk factors. Would also consider orthopedic surgery consultation with Dr. Drake regarding his intractable back pain. We would recommend MRI of the brain for further evaluation. Would continue close monitoring of his blood pressure. Would allow for permissive hypertension given his recent strokelike symptoms. Case was discussed at length with the patient as well as his and daughter at bedside. All of their questions were answered. They're aware of his very guarded condition. We will continue close neurological follow-up for the patient during this admission. Time with Patient: Greater than 30
[2017-09-30] MEDS ORDERED: DOXAZOSIN 4 MG TAB PO SCH (21:00)
[2017-09-30] MEDS ORDERED: ATORVASTATIN 20 MG TAB PO SCH (21:00)
[2017-09-30 21:20] VITALS: RESP 18
[2017-10-01 06:43] LABS: Cholesterol 141 mg/dL (<200); HDL Cholesterol 57 mg/dL (40-60); LDL Cholesterol,Calculated 67 mg/dL (0-99); Triglycerides 87 mg/dL (<150)
[2017-10-01] MEDS ORDERED: PANTOPRAZOLE 40 MG TABLET PO SCH (07:30)
[2017-10-01 07:43] VITALS: PULSE 69
[2017-10-01] MEDS ORDERED: ASPIRIN 325 MG TAB PO SCH (09:00)
[2017-10-01] MEDS ORDERED: amLODIPine 2.5 MG TAB PO SCH (09:00)
[2017-10-01] MEDS ORDERED: ATENOLOL 50 MG TAB PO SCH (09:00)
[2017-10-01] MEDS ORDERED: POTASSIUM CHLORIDE ER 10 MEQ TAB.ER.PRT PO SCH (09:00)
[2017-10-01] MEDS ORDERED: SERTRALINE 100 MG TAB PO SCH (09:00)
--- NOTE | 2017-10-01 11:20 | MR ---
MRI brain without contrast HISTORY: Right hemispheric TIA Multiplanar multisequence imaging through the brain or graph correlation to CT brain 09/30/2017, MRI b rain 02/01/2009 There is no restricted diffusion. Cortical atrophy is again noted. Diffuse confluent and scattered hy perintensities on inversion recovery and T2-weighted sequences present in the deep white matter. Cere bellopontine angle, corpus callosum, pituitary, cervical medullary junction within normal limits. Elie triculomegaly is present in accordance with the degree of cortical atrophy. Inflammatory changes pres ent in the maxillary sinuses, sphenoid, ethmoid air cells. Orbits show symmetric appearance. No evide nt hemorrhage or hydrocephalus. There are normal vascular flow voids. 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 No acute brain abnormality is evident. Sinus disease
[2017-10-01 12:40] VITALS: BP 157/74; TEMP 97.6
--- NOTE | 2017-10-01 13:16 | P.HPIM ---
History of Present Illness H&P Date: 10/01/17 (. Also both his H&P and discharge summary) Chief Complaint: Dysarthria and facial droop 85 years old gentleman patient of Dr. Day with past medical history of coronary artery disease status post 4 stent placement in 2000, hyperlipidemia, hypertension, obstructive sleep apnea comes into the ER with complaints of facial numbness numbness of his left hand associated with dysarthria that lasted half an hour. Patient denies similar episodes in the past or any history of TIA or stroke. He denies any history of palpitation, chest pain, shortness of breath. He does feel dizzy for the past 1 month and has been using his cane. Echo was ordered. Neurology evaluated the patient and recommended MRI which was negative. Carotid Dopplers ordered patient will be discharged on aspirin and Lipitor".. Review of Systems Constitutional: Denies chills, Denies fever, Denies lethargy, Denies malaise, Denies poor appetite, Denies weakness, Denies weight loss Eyes: denies decreased vision, denies diplopia, denies discharge, denies pain Ears: deny: decreased hearing Ears, nose, mouth and throat: Denies dental pain, Denies headache, Denies nasal discharge, Denies nose pain Cardiovascular: Denies chest pain, Denies decreased exercise tolerance, Denies edema, Denies high blood pressure, Denies irregular heart beat, Denies palpitations, Denies paroxysmal nocturnal dyspnea, Denies rapid heart beat, Denies shortness of breath Respiratory: Denies congestion, Denies cough, Denies cough with sputum, Denies dyspnea, Denies home oxygen, Denies wheezing Gastrointestinal: Denies abdominal pain, Denies change in bowel habits, Denies coffee ground emesis, Denies early satiety, Denies excessive gas, Denies heartburn, Denies hematemesis, Denies hematochezia, Denies loss of appetite, Denies nausea, Denies vomiting Genitourinary: Denies dysuria, Denies flank pain, Denies kidney stones, Denies menorrhagia, Denies urgency, Denies urinary frequency Musculoskeletal: Denies gait dysfunction, Denies limitation of motion, Denies morning stiffness, Denies muscle cramps Integumentary: Denies rash, Denies wounds, Denies brittle nails, Denies change in hair/nails, Denies darkening of skin Neurological:endorses balance difficulties, endorses change in speech, Denies double vision, endorses gait dysfunction, Denies loss of vision, Denies motor disturbance, endorses numbness that resolved , Denies paralysis, Denies paresthesias, Denies seizures Psychiatric: Denies anxiety, Denies depression Endocrine: Denies excessive sweating, Denies excessive thirst, Denies high blood sugars, Denies palpitations Hematologic/Lymphatic: Denies easy bruising, Denies lymphadenopathy Past Medical History Past Medical History: Coronary Artery Disease (CAD), Eye Disorder, Hyperlipidemia, Hypertension, Skin Disorder, Sleep Apnea/CPAP/BIPAP Additional Past Medical History / Comment(s): currently having constipation, enlarged prostate, migraine,hypoglycemia, CATARACTS REMOVED FROM BOTH EYES, PT RECENTLY STARTED ON 2L OF OXYGEN AT NIGHTTIME ONLY History of Any Multi-Drug Resistant Organisms: None Reported Past Surgical History: Appendectomy, Back Surgery, Heart Catheterization With Stent Additional Past Surgical History / Comment(s): carotid, cataract removal, cardiac stentsx3, lumbar L4-L5 laminectomy with cage Past Anesthesia/Blood Transfusion Reactions: No Reported Reaction Date of Last Stent Placement:: 2000 Past Psychological History: No Psychological Hx Reported Smoking Status: Former smoker Past Alcohol Use History: None Reported Additional Past Alcohol Use History / Comment(s): quit smoking 1963,started smoking 1944 Past Drug Use History: None Reported - Past Family History Mother Family Medical History: Myocardial Infarction ([place]) Father Family Medical History: Myocardial Infarction ([place]) Sister(s) Family Medical History: Cancer, Myocardial Infarction ([place]) Additional Family Medical History / Comment(s): 2 sisters colon ca,1 sister [place] Brother(s) Family Medical History: Cancer, Myocardial Infarction ([place]) Additional Family Medical History / Comment(s): 1 brother [place],1 brother [place] Medications and Allergies Home Medications Medication Instructions Recorded Confirmed Type Aspirin 325 mg PO DAILY 04/26/14 09/30/17 History Omeprazole [PriLOSEC] 20 mg PO AC-BRKFST 04/26/14 09/30/17 History Potassium Chloride [Klor-Con 10] 10 meq PO DAILY 04/26/14 09/30/17 History Sertraline HCl [Zoloft] 100 mg PO QAM 04/26/14 09/30/17 History Terazosin [Hytrin] 5 mg PO HS 04/26/14 09/30/17 History amLODIPine [Norvasc] 2.5 mg PO DAILY 05/21/17 09/30/17 History Atenolol [Tenormin] 50 mg PO DAILY 09/30/17 09/30/17 History traMADol HCl [Ultram] 50 - 100 mg PO Q6H PRN #20 tab 09/30/17 09/30/17 Rx Atorvastatin [Lipitor] 40 mg PO HS #30 tablet 10/01/17 Rx Allergies Allergy/AdvReac Type Severity Reaction Status Date / Time MSG AdvReac BLURRED Uncoded 09/30/17 14:00 VISION, HEADACHE Physical Exam Vitals: Vital Signs Temp Pulse Pulse Pulse Resp BP BP 10/01/17 08:05 69 18 10/01/17 07:41 97.4 F L 69 18 163/60 10/01/17 04:00 98.0 F 76 18 138/69 10/01/17 00:00 99.9 F H 73 18 157/69 09/30/17 20:00 98.1 F 69 18 158/65 09/30/17 18:42 100 09/30/17 18:28 71 16 182/96 09/30/17 17:58 66 19 204/81 09/30/17 17:22 60 16 209/88 09/30/17 16:58 62 16 203/87 09/30/17 16:50 63 16 196/96 09/30/17 16:48 68 18 196/84 09/30/17 15:32 59 L 16 173/77 09/30/17 13:57 97.7 F 66 18 141/65 Pulse Ox 10/01/17 08:05 10/01/17 07:41 97 10/01/17 04:00 96 10/01/17 00:00 96 09/30/17 20:00 97 09/30/17 18:42 09/30/17 18:28 96 09/30/17 17:58 98 09/30/17 17:22 97 09/30/17 16:58 98 09/30/17 16:50 97 09/30/17 16:48 98 09/30/17 15:32 95 09/30/17 13:57 96 Intake and Output 09/30/17 10/01/17 10/01/17 22:59 06:59 14:59 Intake Total 800 240 Output Total 300 Balance -300 800 240 Intake: Intake, IV Titration 800 Amount Sodium Chloride 0.9% 1, 800 000 ml @ 100 mls/hr IV . Q10H STA Rx#:[id number] Oral 240 Output: Urine 300 Other: Voiding Method Urinal Urinal Urinal Weight 92.3 kg - Constitutional General appearance: cooperative, no acute distress, obese - EENT Eyes: anicteric sclerae, PERRLA, normal appearance ENT: hearing grossly normal - Neck Neck: no lymphadenopathy, normal ROM, no other, no rigidity, no stridor, no thyromegaly - Respiratory Respiratory: bilateral: CTA, negative: diminished, dullness, rales, rhonchi - Cardiovascular Rhythm: regular Heart sounds: normal: S1, S2 Abnormal Heart Sounds: no systolic murmur, no diastolic murmur, no rub, no S3 Gallop, no S4 Gallop, no click, no other - Gastrointestinal General gastrointestinal: normal bowel sounds, soft - Integumentary Integumentary: no rash - Neurologic Neurologic: CNII-XII intact - Musculoskeletal Musculoskeletal: gait normal, strength equal bilaterally - Psychiatric Psychiatric: A&O x's 3, appropriate affect Results CBC & Chem 7: 09/30/17 14:25 09/30/17 14:25 Labs: Abnormal Lab Results - Last 24 Hours (Table) 09/30/17 09/30/17 Range/Units 14:25 14:25 RBC 4.16 L (4.30-5.90) m/uL Hct 37.7 L (39.0-53.0) % Potassium 3.4 L (3.5-5.1) mmol/L Glucose 117 H (74-99) mg/dL Thrombosis Risk Factor Assmnt - DVT/VTE Prophylaxis DVT/VTE Prophylaxis: Pharmacologic Prophylaxis ordered - Choose All That Apply Any of the Below Risk Factors Present?: Yes Each Factor Represents 1 point: Obesity (BMI >25) Other Risk Factors: Yes Each Risk Factor Represents 3 Points: Age 75 years or older Thrombosis Risk Factor Assessment Total Risk Factor Score: 4 Thrombosis Risk Factor Assessment Level: Moderate Risk Assessment and Plan Plan: #1 acute TIA with history of left endarterectomy. MRI negative for any embolic stroke or ischemic stroke. Continue patient on aspirin 325 mg daily. We will switch simvastatin to Lipitor 40 mg at bedtime. #2. History of CAD with prior to cardiac stents in 2000 continue atenolol, aspirin, statin 4. Hypertension with hypertensive urgency - continue patient on atenolol, amlodipine 2.5 mg by mouth daily stop 5. Hyperlipidemia Zocor switch to Lipitor 6. BPH on prazosin 5 at bedtime GI prophylaxis and DVT prophylaxis provided Patient will follow with Dr. Pinzon as outpatient. CC a copy of discharge Dr. Pinzon
--- NOTE | 2017-10-01 13:18 | ECHOF ---
Referral Reason:dizziness, TIA MEASUREMENTS -------- HEIGHT: 182.9 cm WEIGHT: 92.5 kg BP: RVIDd: 2.7 cm (< 3.3) IVSd: 1.4 cm (0.6 - 1.1) LVIDd: 4.7 cm (3.9 - 5.3) LVPWd: 1.3 cm (0.6 - 1.1) IVSs: 1.4 cm LVIDs: 3.9 cm LVPWs: 1.9 cm LA Diam: 3.8 cm (2.7 - 3.8) LAESV Index (A-L): 37.08 ml/m Ao Diam: 3.6 cm (2.0 - 3.7) AV Cusp: 1.2 cm (1.5 - 2.6) LA Diam: 3.9 cm (2.7 - 3.8) MV E Noel: 0.39 m/s MV DecT: 277 ms MV A Noel: 0.92 m/s MV E/A Ratio: 0.43 AV maxP.39 mmHg AV maxP.39 mmHg AV meanP.83 mmHg AR PHT: 471 ms RAP: 5.00 mmHg RVSP: 38.65 mmHg FINDINGS -------- Sinus rhythm. This was a technically adequate study. The left ventricular size is normal. There is moderate concentric left ventricular hypertrophy. O verall left ventricular systolic function is low-normal with, an EF between 50 - 55 %. The right ventricle is normal in size. The left atrial size is normal. The right atrial size is normal. There is mild aortic valve sclerosis. There is mild aortic regurgitation. There is mild aortic st enosis present. Peak/mean gradient across the Aortic Valve is 25.39mmHg / 12.83mmHg. Mild mitral annular calcification present. Mild mitral regurgitation is present. Mild tricuspid regurgitation present. There is mild pulmonary hypertension. The right ventricular systolic pressure, as measured by Doppler, is 38.65mmHg. Trace/mild (physiologic) pulmonic regurgitation. The aortic root size is normal. There is no pericardial effusion. CONCLUSIONS -------- 1. The left ventricular size is normal. 2. There is moderate concentric left ventricular hypertrophy. 3. Overall left ventricular systolic function is low-normal with, an EF between 50 - 55 %. 4. The left atrial size is normal. 5. There is mild aortic valve sclerosis. 6. There is mild aortic regurgitation. 7. There is mild aortic stenosis present. 8. Peak/mean gradient across the Aortic Valve is 25.39mmHg / 12.83mmHg. 9. Mild mitral annular calcification present. 10. Mild mitral regurgitation is present. 11. Mild tricuspid regurgitation present. 12. There is mild pulmonary hypertension. 13. The right ventricular systolic pressure, as measured by Doppler, is 38.65mmHg. 14. Trace/mild (physiologic) pulmonic regurgitation. 15. The aortic root size is normal. 16. There is no pericardial effusion. [employer] PRINTER: Leticia Thao RDCS
--- NOTE | 2017-10-25 07:55 | CDI ---
Last Revision, June 2017 Documentation Clarification Form Date: 10/25/17 From: Swathi Davey Charisse Myrick, Sewage Plant Attendant between 8:30 am & 5 pm Elsa Admit Date: 09/30/2017 4:39:00 PM Patient Name: Butch Roland Visit Number: [id number] Discharge Date: 10/01/17 ATTENTION: The Clinical Documentation Specialists (CDI) and [facility] Coding Staff appreciate your assistance in clarifying documentation. Please respond to the clarification below the line at the bottom and electronically sign. The CDI & [facility] Coding staff will review the response and follow-up if needed. Please note: Queries are made part of the Legal Health Record. If you have any questions, please contact the author of this message via ITS. Dr. Natalie Riley Patient presented due to dyarthria and facial droop. Per H&P "acute TIA". Neuro consult "acute right arterial ischemic stroke." Patient history/risk factors: CAD, HTN, hyperlipidemia, TIFFANIE 09/[address] wo con: no acute intracranial abnormaility seen. 10/[address] wo con: White matter demyelination change likely due to chronic small vessel ischemia, there is age-related atrophy. No acute brain abnormaily is evident. Treatment: Switch Zocor to Liptor, continiue on Atenolol The patients principal diagnosis has not been clearly identified and requires clarification. In your professional opinion, can you please clarify which diagnosis, after study, accounted for the patients presenting symptoms and was the reason chiefly responsible for the admission? TIA Ischemic stroke Other Please continue to document in your progress notes and discharge summary in order to capture severity of illness and risk of mortality. Include clinical findings that support your diagnosis. ____TIA, already mentioned in the H and P and neurology note MTDD
== END 2017-10-01 14:35 | disposition home or self-care (01) | DRG 69 ==
LOC: EC 13:53 → 6SEL 16:39
PROVIDERS: ADMIT Internal Medicine; ATTEND Internal Medicine
DX: G45.9 Transient cerebral ischemic attack, unspecified (principal); Z99.81 Dependence on supplemental oxygen; E78.5 Hyperlipidemia, unspecified; I16.0 Hypertensive urgency; I10 Essential (primary) hypertension; R40.2142 Coma scale, eyes open, spontaneous, at arrival to emergency department; R40.2362 Coma scale, best motor response, obeys commands, at arrival to emergency department; R40.2252 Coma scale, best verbal response, oriented, at arrival to emergency department; K21.9 Gastro-esophageal reflux disease without esophagitis; I25.10 Atherosclerotic heart disease of native coronary artery without angina pectoris; G47.33 Obstructive sleep apnea (adult) (pediatric); K59.00 Constipation, unspecified; G43.909 Migraine, unspecified, not intractable, without status migrainosus; G89.29 Other chronic pain; M54.5 Low back pain; N40.0 Benign prostatic hyperplasia without lower urinary tract symptoms; Z79.82 Long term (current) use of aspirin; Z79.899 Other long term (current) drug therapy; Z87.891 Personal history of nicotine dependence; Z95.5 Presence of coronary angioplasty implant and graft; Z98.1 Arthrodesis status; Z90.49 Acquired absence of other specified parts of digestive tract; Z98.42 Cataract extraction status, left eye; Z98.41 Cataract extraction status, right eye; Z96.1 Presence of intraocular lens; Z91.02 Food additives allergy status; Z82.49 Family history of ischemic heart disease and other diseases of the circulatory system; Z80.0 Family history of malignant neoplasm of digestive organs; Z80.1 Family history of malignant neoplasm of trachea, bronchus and lung
CPT/HCPCS: 36415; 70450; 70551; 71046; 80053; 80061; 82550; 82553; 84484; 85025; 85610; 85730; 93005; 93306; 96361; 96374; 96375; 99284; 99291

== ENCOUNTER 2017-10-01 15:46 | Emergency (ER) | payer MEDICARE, OTHER ==
[2017-10-01 16:08] VITALS: RESP 18; TEMP 97.8
--- NOTE | 2017-10-01 16:27 | ED ---
General Adult HPI - General Chief complaint: Neuro Symptoms/Deficit Stated complaint: TIA Time Seen by Provider: 10/01/17 15:54 Source: patient, EMS, RN notes reviewed, old records reviewed Mode of arrival: EMS Limitations: no limitations - History of Present Illness Initial comments: 87-year-old male presenting for evaluation of left facial numbness and tingling. Patient was recently admitted to the hospital with TIA, rule out CVA. he was admitted yesterday and discharged today in stable condition. He was asymptomatic. Patient was started on a new antihypertensive medication, he has been taking all medications as prescribed. I did evaluate the patient approximately 15 minutes after symptom onset and his symptoms were completely resolved. he denies any numbness or tingling. No facial weakness or extremity weakness. no headache. No vision changes. no chest pain, no shortness of breath , no abdominal pain nausea vomiting. - Related Data Home Medications Medication Instructions Recorded Confirmed Aspirin 325 mg PO DAILY 04/26/14 10/01/17 Omeprazole [PriLOSEC] 20 mg PO AC-BRKFST 04/26/14 10/01/17 Potassium Chloride [Klor-Con 10] 10 meq PO DAILY 04/26/14 10/01/17 Sertraline HCl [Zoloft] 100 mg PO QAM 04/26/14 10/01/17 Terazosin [Hytrin] 5 mg PO HS 04/26/14 10/01/17 amLODIPine [Norvasc] 2.5 mg PO DAILY 05/21/17 10/01/17 Atenolol [Tenormin] 50 mg PO DAILY 09/30/17 10/01/17 Previous Rx's Medication Instructions Recorded traMADol HCl [Ultram] 50 - 100 mg PO Q6H PRN #20 tab 09/30/17 Atorvastatin [Lipitor] 40 mg PO HS #30 tablet 10/01/17 Allergies Allergy/AdvReac Type Severity Reaction Status Date / Time MSG AdvReac BLURRED Uncoded 10/01/17 16:03 VISION, HEADACHE Review of Systems ROS Statement: Those systems with pertinent positive or pertinent negative responses have been documented in the HPI. ROS Other: All systems not noted in ROS Statement are negative. Past Medical History Past Medical History: Coronary Artery Disease (CAD), Eye Disorder, Hyperlipidemia, Hypertension, Skin Disorder, Sleep Apnea/CPAP/BIPAP Additional Past Medical History / Comment(s): currently having constipation, enlarged prostate, migraine,hypoglycemia, CATARACTS REMOVED FROM BOTH EYES, PT RECENTLY STARTED ON 2L OF OXYGEN AT NIGHTTIME ONLY History of Any Multi-Drug Resistant Organisms: None Reported Past Surgical History: Appendectomy, Back Surgery, Heart Catheterization With Stent Additional Past Surgical History / Comment(s): carotid, cataract removal, cardiac stentsx3, lumbar L4-L5 laminectomy with cage Past Anesthesia/Blood Transfusion Reactions: No Reported Reaction Date of Last Stent Placement:: 2000 Past Psychological History: No Psychological Hx Reported Smoking Status: Former smoker Past Alcohol Use History: None Reported Past Drug Use History: None Reported - Past Family History Mother Family Medical History: Myocardial Infarction ([place]) Father Family Medical History: Myocardial Infarction ([place]) Sister(s) Family Medical History: Cancer, Myocardial Infarction ([place]) Additional Family Medical History / Comment(s): 2 sisters colon ca,1 sister [place] Brother(s) Family Medical History: Cancer, Myocardial Infarction ([place]) Additional Family Medical History / Comment(s): 1 brother [place],1 brother [place] General Exam Limitations: no limitations General appearance: alert, in no apparent distress Head exam: Present: atraumatic, normocephalic Eye exam: Present: normal appearance, PERRL, EOMI ENT exam: Present: normal exam Neck exam: Present: normal inspection. Absent: tenderness, meningismus Respiratory exam: Present: normal lung sounds bilaterally. Absent: respiratory distress, wheezes Cardiovascular Exam: Present: regular rate, normal rhythm GI/Abdominal exam: Present: soft. Absent: distended, tenderness, guarding Extremities exam: Present: normal inspection, full ROM, normal capillary refill. Absent: tenderness Neurological exam: Present: alert, oriented X3, CN II-XII intact, normal gait. Absent: motor sensory deficit Psychiatric exam: Present: normal affect, normal mood Skin exam: Present: warm, dry, intact. Absent: cyanosis, diaphoretic Course Vital Signs 10/01/17 10/01/17 16:03 16:59 Temperature 97.8 F Pulse Rate 58 L 54 L Respiratory 18 18 Rate Blood Pressure 164/71 184/76 O2 Sat by Pulse 95 95 Oximetry Medical Decision Making - Medical Decision Making 87-year-old male presenting with signs suggestive of TIA. Patient does have history of TIA and was his chart from the hospital today. MRI reviewed from earlier today showed chronic small vessel ischemia with no acute infarction or or mass. Patient's symptoms lasted approximately 5-10 minutes. he is observed in the emergency department with no return of symptoms , NIH remains 0. Vital signs stable with mildly elevated blood pressure at 166 systolic. Case discussed with with Dr. Huitron who is familiar with the patient. Patient is treated appropriately, on full-strength aspirin, statin, and blood pressure control. Workup including MRI was negative. Patient receives carotid ultrasounds from his vascular surgeon Dr. Tran on a 3 month basis. And according to the family the studies have been normal. Patient is comfortable with discharge, no further testing needed at this time. Return with worsening or changing symptoms. Disposition Clinical Impression: TIA (transient ischemic attack) Disposition: HOME SELF-CARE Condition: Good Instructions: Transient Ischemic Attack (ED) Referrals: Jefferson Day DO [Primary Care Provider] - 1-2 days Lloyd Huitron MD [STAFF PHYSICIAN] - 1-2 days Time of Disposition: 17:13
[2017-10-01 17:00] VITALS: PULSE 54
[2017-10-01 17:21] VITALS: BP 150/66
== END 2017-10-01 17:20 | disposition home or self-care (01) ==
LOC: EC 15:46
DX: G45.9 Transient cerebral ischemic attack, unspecified (principal); I25.10 Atherosclerotic heart disease of native coronary artery without angina pectoris; I10 Essential (primary) hypertension; G47.30 Sleep apnea, unspecified; Z99.89 Dependence on other enabling machines and devices; Z87.891 Personal history of nicotine dependence; Z79.82 Long term (current) use of aspirin; Z79.899 Other long term (current) drug therapy; Z88.8 Allergy status to other drugs, medicaments and biological substances
CPT/HCPCS: 99284

== ENCOUNTER → 2017-12-06 | Outpatient (CLI) | payer MEDICARE, OTHER ==
[2017-12-06 16:42] LABS: Basophils % (A) 0 %; Eosinophils # (A) 0.1 k/uL (0-0.7); Eosinophils % (A) 2 %; HCT 32.6 % (39.0-53.0); HGB 10.8 gm/dL (13.0-17.5); Lymphocytes # (A) 1.6 k/uL (1.0-4.8); Lymphocytes % (A) 29 %; MCH 31.8 pg (25.0-35.0); MCHC 33.2 g/dL (31.0-37.0); MCV 95.9 fL (80.0-100.0); Mean Platelet Volume 7.4; Monocytes # (A) 0.4 k/uL (0-1.0); Monocytes % (A) 7 %; Neutrophils # (A) 3.3 k/uL (1.3-7.7); Neutrophils % (A) 61 %; Platelet Count 138 k/uL (150-450); RBC 3.39 m/uL (4.30-5.90); RDW 13.5 % (11.5-15.5); WBC 5.4 k/uL (3.8-10.6)
[2017-12-06 18:06] LABS: Erythrocyte Sedimentation Rate 11 mm/hr (0-15)
== END | disposition home or self-care (01) ==
LOC: LABWHC1 15:23
PROVIDERS: ATTEND Ophthalmology
DX: H34.8110 Central retinal vein occlusion, right eye, with macular edema (principal)
CPT/HCPCS: 36415; 85025; 85652

== ENCOUNTER 2018-01-13 06:45 | Observation (INO) | payer MEDICARE, OTHER ==
[2018-01-13] MEDS ORDERED: SODIUM CHLORIDE 0.9% 1,000 ML IV STA (07:23)
[2018-01-13] MEDS ORDERED: SODIUM CHLORIDE 0.9% 500 ML IV STA (07:23)
[2018-01-13] MEDS ORDERED: MORPHINE SULFATE 2 MG/ML SYRINGE IV STA (07:23)
[2018-01-13] MEDS ORDERED: ONDANSETRON 4 MG/2 ML VIAL IVP STA (07:23)
[2018-01-13 07:59] LABS: Basophils % (A) 0 %; Eosinophils # (A) 0.2 k/uL (0-0.7); Eosinophils % (A) 5 %; HCT 35.2 % (39.0-53.0); Lymphocytes # (A) 1.3 k/uL (1.0-4.8); Lymphocytes % (A) 32 %; MCH 32.3 pg (25.0-35.0); MCHC 34.1 g/dL (31.0-37.0); MCV 94.8 fL (80.0-100.0); Mean Platelet Volume 7.4; Monocytes # (A) 0.3 k/uL (0-1.0); Monocytes % (A) 7 %; Neutrophils # (A) 2.2 k/uL (1.3-7.7); Neutrophils % (A) 55 %; Platelet Count 146 k/uL (150-450); RBC 3.71 m/uL (4.30-5.90); RDW 13.2 % (11.5-15.5)
[2018-01-13 08:21] LABS: Albumin 3.9 g/dL (3.5-5.0); Calcium 8.8 mg/dL (8.4-10.2); Potassium 3.7 mmol/L (3.5-5.1); Total Bilirubin 0.6 mg/dL (0.2-1.3); Total Protein 6.3 g/dL (6.3-8.2)
--- NOTE | 2018-01-13 09:26 | CT ---
EXAMINATION TYPE: CT abdomen pelvis w con DATE OF EXAM: 01/13/2018 COMPARISON: 09/30/2017 HISTORY: Lower abdominal/pelvic pain that is radiating into back pain CT DLP: 1683 mGycm Automated exposure control for dose reduction was used. TECHNIQUE: Helical acquisition of images was performed from the lung bases through the pelvis. CONTRAST: Performed without Oral Contrast and with IV Contrast, patient injected with 100 mL of Isovue 300. FINDINGS: LUNG BASES: 3 mm right basilar pulmonary nodules present on series 4 image 1. Minimal bibasilar subse gmental dependent atelectasis is seen. Pleural parenchymal scarring is also noted at the lung bases. LIVER/GB: Similar to exam of 09/30/2017 there is continued stability of the approximately 2.9 x 1.2 cm right hepatic lesion with particular femoral dystrophic calcifications. Remainder the liver is unrem arkable. PANCREAS: And chronic renal atrophy without ductal dilatation is noted. SPLEEN: Punctate splenic lesion is too small to accurately characterize on series 3 image 16 but unch anged from the prior, likely related to a cyst. Small splenule seen adjacent to the [place] spleen. ADRENALS: There is stable nodular thickening of both adrenal glands, right greater than left that may represent adrenal gland hyperplasia, alternatively small right renal neoplasms, favored to be benign , could be present. KIDNEYS: There is an unchanged right midpole 1.0 cm renal cyst. Stable 5 mm lateral exophytic left re nal lesion is again felt to represent a proteinaceous or hemorrhagic cyst. Retroaortic left renal vei n is again seen. No new hydronephrosis. FREE AIR: No free air is visualized. RETROPERITONEAL ADENOPATHY: No greater than 1 cm short axis lymph node is seen within the abdomen or pelvis. REPRODUCTIVE ORGANS: Prostate gland is heterogenous containing central zone calcifications. URINARY BLADDER: Personal unremarkable. PELVIC ADENOPATHY: Possible atypical lymph node along the right gonadal vein. Otherwise no greater t gleason 1 cm short axis lymph node within the abdomen or pelvis. OSSEOUS STRUCTURES: There are postsurgical changes the lumbar spine and extensive degenerative frazier es. There is a slight levoscoliosis of the lower lumbar spine.. BOWEL: There is no evidence of large or small bowel dilatation. No evidence of obstruction. Multifoc al short segment haustral thickening of the sigmoid colon likely relates to colonic spasm rather than multifocal colonic lesions although colonoscopy could be considered if not recently performed. No pr oximal obstruction. No pericolonic fat stranding. OTHER: Chronic infrarenal aortic dissection is unchanged from the prior marked on series 3 images 44 through 46 are also seen more inferiorly proximal to the aortoiliac bifurcation with no apparent exte nt into the common iliac arteries. Common iliac arteries are patent. Extensive calcific and noncalcif ic atheromatous changes are seen of the abdominal aorta and its branches. No aneurysmal dilatation. There is slight interval enlargement of the approximately 1.5 x 1.3 cm peripherally hyperdense and ce ntrally hypodense lesion along the gonadal vein course that again may represent a lymph node. This ap pears to be adjacent to the gonadal vein and is not favored to represent thrombus as there is no prox imal dilatation of the gonadal vein. No other adenopathy is seen. IMPRESSION: 1. CHRONIC INFRARENAL AORTIC DISSECTION. NO ANEURYSMAL DILATATION OR PROGRESSION FROM THE PRIOR EXAM OF 09/21/2018. 2. MINIMAL ENLARGEMENT OF THE PREVIOUSLY SEEN POSSIBLE LYMPH NODE VERSUS MESENTERIC LESION ALONG THE RIGHT GONADAL VEIN. NO NEW ADENOPATHY WITHIN THE ABDOMEN OR PELVIS. THIS WOULD BE DIFFICULT FOR PERCU TANEOUS BIOPSY GIVEN ITS LOCATION AND THEREFORE IF THERE IS FURTHER CLINICAL CONCERN PET/CT COULD BE PERFORMED AND/OR SCROTAL ULTRASOUND.
[2018-01-13 09:40] LABS: Appearance,Urine Clear (Clear); Bilirubin,Urine Negative (Negative); Blood,Urine Negative (Negative); Color,Urine Light Yellow; Glucose,Urine (UA) Negative (Negative); Ketones,Urine Negative (Negative); Leukocyte Esterase,Urine Negative (Negative); Nitrite,Urine Negative (Negative); Protein,Urine Negative (Negative); Specific Gravity,Urine 1.007 (1.001-1.035); Urobilinogen,Urine <2.0 mg/dL (<2.0)
[2018-01-13] MEDS ORDERED: ENALAPRILAT 1.25 MG/ML 1 ML VIAL IVP STA ×2 (09:43→10:58)
--- NOTE | 2018-01-13 09:51 | ED ---
General Adult HPI - General Chief complaint: Back Pain/Injury Stated complaint: back pain Time Seen by Provider: 01/13/18 07:05 Source: patient Mode of arrival: wheelchair Limitations: no limitations - History of Present Illness Initial comments: 87 years old male comes in with the back pain and the right flank area pain he said pain was so bad he couldn't sleep all night pain is more so on the right upper quadrant area right flank area and somewhat in the right lower quadrant area he status post appendectomy. The nausea no vomiting no diarrhea no constipation denies any chest pain no shortness of breath. Denies any symptoms of TIA or CVA - Related Data Home Medications Medication Instructions Recorded Confirmed Aspirin 325 mg PO DAILY 04/26/14 01/13/18 Omeprazole [PriLOSEC] 20 mg PO AC-BRKFST 04/26/14 01/13/18 Sertraline HCl [Zoloft] 100 mg PO QAM 04/26/14 01/13/18 Terazosin [Hytrin] 5 mg PO HS 04/26/14 01/13/18 amLODIPine [Norvasc] 2.5 mg PO DAILY 05/21/17 01/13/18 Atenolol [Tenormin] 50 mg PO DAILY 09/30/17 01/13/18 Previous Rx's Medication Instructions Recorded Atorvastatin [Lipitor] 40 mg PO HS #30 tablet 10/01/17 Allergies Allergy/AdvReac Type Severity Reaction Status Date / Time MSG AdvReac BLURRED Uncoded 01/13/18 06:50 VISION, HEADACHE Review of Systems ROS Statement: Those systems with pertinent positive or pertinent negative responses have been documented in the HPI. ROS Other: All systems not noted in ROS Statement are negative. Past Medical History Past Medical History: Coronary Artery Disease (CAD), Eye Disorder, Hyperlipidemia, Hypertension, Skin Disorder, Sleep Apnea/CPAP/BIPAP Additional Past Medical History / Comment(s): currently having constipation, enlarged prostate, migraine,hypoglycemia, CATARACTS REMOVED FROM BOTH EYES, PT RECENTLY STARTED ON 2L OF OXYGEN AT NIGHTTIME ONLY History of Any Multi-Drug Resistant Organisms: None Reported Past Surgical History: Appendectomy, Back Surgery, Heart Catheterization With Stent Additional Past Surgical History / Comment(s): carotid, cataract removal, cardiac stentsx3, lumbar L4-L5 laminectomy with cage Past Anesthesia/Blood Transfusion Reactions: No Reported Reaction Date of Last Stent Placement:: 2000 Past Psychological History: No Psychological Hx Reported Smoking Status: Former smoker Past Alcohol Use History: None Reported Past Drug Use History: None Reported - Past Family History Mother Family Medical History: Myocardial Infarction ([place]) Father Family Medical History: Myocardial Infarction ([place]) Sister(s) Family Medical History: Cancer, Myocardial Infarction ([place]) Additional Family Medical History / Comment(s): 2 sisters colon ca,1 sister [place] Brother(s) Family Medical History: Cancer, Myocardial Infarction ([place]) Additional Family Medical History / Comment(s): 1 brother CA,1 brother [place] General Exam - General Exam Comments Initial Comments: General: The patient is awake and alert, in mild distress Skin: Skin is warm and dry and no rashes or lesions are noted. Eye: Pupils are equal, round and reactive to light, extra-ocular movements are intact; there is normal conjunctiva bilaterally. Ears, nose, mouth and throat: There are moist mucous membranes and no oral lesions. Neck: The neck is supple, there is no tenderness or JVD. Cardiovascular: There is a regular rate and rhythm. No murmur, rub or gallop is appreciated. Respiratory: To auscultation bilateral, no wheezing no rhonchi no distress respiratory quintanilla noticed Gastrointestinal: Is slightly tender over the right flank area and the over the right-sided anterior abdomen anterior to the right kidney Back: There is no tenderness to palpation in the midline. There is no obvious deformity. Musculoskeletal: Normal ROM, no tenderness, There is no pedal edema. There is no calf tenderness or swelling. No cords were appreciated. Neurological: CN II-XII intact, Cranial nerves III through XII are intact. There are no obvious motor or sensory deficits. Coordination appears grossly intact. Speech is normal. Psychiatric: Cooperative, appropriate mood & affect, normal judgment. Limitations: no limitations Course Vital Signs 01/13/18 01/13/18 01/13/18 06:48 07:49 08:36 Temperature 98 F Pulse Rate 62 58 L 50 L Respiratory 20 16 16 Rate Blood Pressure 205/78 226/95 223/88 O2 Sat by Pulse 97 95 94 L Oximetry 01/13/18 01/13/18 09:21 09:42 Temperature Pulse Rate 51 L 50 L Respiratory 16 16 Rate Blood Pressure 198/89 198/90 O2 Sat by Pulse 94 L Oximetry Labs and imaging studies were reviewed, CT abdomen shows infrarenal chronic dissection which hasn't changed from the prior studies considering patient's blood pressure has been high with an admit him home with Dr. Nick's consult this evening was to do CT angiogram and we need to control his blood pressure and especially when there is a question of for dissection Medical Decision Making - Lab Data Result diagrams: 01/13/18 07:38 01/13/18 07:38 Lab Results 01/13/18 01/13/18 01/13/18 Range/Units 07:38 07:38 07:38 WBC 4.0 (3.8-10.6) k/uL RBC 3.71 L (4.30-5.90) m/uL Hgb 12.0 L (13.0-17.5) gm/dL Hct 35.2 L (39.0-53.0) % MCV 94.8 (80.0-100.0) fL MCH 32.3 (25.0-35.0) pg MCHC 34.1 (31.0-37.0) g/dL RDW 13.2 (11.5-15.5) % Plt Count 146 L (150-450) k/uL Neutrophils % 55 % Lymphocytes % 32 % Monocytes % 7 % Eosinophils % 5 % Basophils % 0 % Neutrophils # 2.2 (1.3-7.7) k/uL Lymphocytes # 1.3 (1.0-4.8) k/uL Monocytes # 0.3 (0-1.0) k/uL Eosinophils # 0.2 (0-0.7) k/uL Basophils # 0.0 (0-0.2) k/uL Sodium 141 (137-145) mmol/L Potassium 3.7 (3.5-5.1) mmol/L Chloride 104 (98-107) mmol/L Carbon Dioxide 31 H (22-30) mmol/L Anion Gap 6 mmol/L BUN 19 (9-20) mg/dL Creatinine 1.03 (0.66-1.25) mg/dL Est GFR (CKD-EPI)AfAm 75 (>60 ml/min/1.73 sqM) Est GFR (CKD-EPI)NonAf 65 (>60 ml/min/1.73 sqM) Glucose 97 (74-99) mg/dL Plasma Lactic Acid Elie 0.8 (0.7-2.0) mmol/L Calcium 8.8 (8.4-10.2) mg/dL Total Bilirubin 0.6 (0.2-1.3) mg/dL AST 24 (17-59) U/L ALT 31 (21-72) U/L Alkaline Phosphatase 79 (38-126) U/L Troponin I (0.000-0.034) ng/mL Total Protein 6.3 (6.3-8.2) g/dL Albumin 3.9 (3.5-5.0) g/dL Amylase 50 (30-110) U/L Lipase 30 (23-300) U/L Urine Color Urine Appearance (Clear) Urine pH (5.0-8.0) Ur Specific [place] (1.001-1.035) Urine Protein (Negative) Urine Glucose (UA) (Negative) Urine Ketones (Negative) Urine Blood (Negative) Urine Nitrite (Negative) Urine Bilirubin (Negative) Urine Urobilinogen (<2.0) mg/dL Ur Leukocyte Esterase (Negative) 01/13/18 01/13/18 Range/Units 07:38 09:15 WBC (3.8-10.6) k/uL RBC (4.30-5.90) m/uL Hgb (13.0-17.5) gm/dL Hct (39.0-53.0) % MCV (80.0-100.0) fL MCH (25.0-35.0) pg MCHC (31.0-37.0) g/dL RDW (11.5-15.5) % Plt Count (150-450) k/uL Neutrophils % % Lymphocytes % % Monocytes % % Eosinophils % % Basophils % % Neutrophils # (1.3-7.7) k/uL Lymphocytes # (1.0-4.8) k/uL Monocytes # (0-1.0) k/uL Eosinophils # (0-0.7) k/uL Basophils # (0-0.2) k/uL Sodium (137-145) mmol/L Potassium (3.5-5.1) mmol/L Chloride (98-107) mmol/L Carbon Dioxide (22-30) mmol/L Anion Gap mmol/L BUN (9-20) mg/dL Creatinine (0.66-1.25) mg/dL Est GFR (CKD-EPI)AfAm (>60 ml/min/1.73 sqM) Est GFR (CKD-EPI)NonAf (>60 ml/min/1.73 sqM) Glucose (74-99) mg/dL Plasma Lactic Acid Elie (0.7-2.0) mmol/L Calcium (8.4-10.2) mg/dL Total Bilirubin (0.2-1.3) mg/dL AST (17-59) U/L ALT (21-72) U/L Alkaline Phosphatase (38-126) U/L Troponin I <0.012 (0.000-0.034) ng/mL Total Protein (6.3-8.2) g/dL Albumin (3.5-5.0) g/dL Amylase (30-110) U/L Lipase (23-300) U/L Urine Color Light Yellow Urine Appearance Clear (Clear) Urine pH 7.0 (5.0-8.0) Ur Specific [place] 1.007 (1.001-1.035) Urine Protein Negative (Negative) Urine Glucose (UA) Negative (Negative) Urine Ketones Negative (Negative) Urine Blood Negative (Negative) Urine Nitrite Negative (Negative) Urine Bilirubin Negative (Negative) Urine Urobilinogen <2.0 (<2.0) mg/dL Ur Leukocyte Esterase Negative (Negative) Critical Care Time Total Critical Care Time: 30 Critical Care Time: Blood pressure is 205 systolic, he said he hasn't taken his blood pressure pills this morning by his home meds were reviewed and those meds were given to patient and his systolic blood pressure stayed around 200 considering that I thought patient was given a Vasotec since his heart rate is very slow he is not a candidate for labetalol also reviewed his CT abdomen noticed had chronic infrarenal dissection which hasn't changed but considering patient has a pain all night they are I plan to admit him mom to control his blood pressure and have the vascular surgery keep an eye on him the family is a candidate of firm a DPT aneurysm studies will let Dr. Tran look into the [facility] Dr. Blount since his Dr. Day's patient Disposition Clinical Impression: Hypertension Disposition: ADMITTED IP TO THIS HOSP Condition: Good Referrals: Barb,Jefferson, DO [Primary Care Provider] - 1-2 days
[2018-01-13] MEDS ORDERED: MORPHINE SULFATE 2 MG/ML SYRINGE IV PRN (10:04)
[2018-01-13] MEDS ORDERED: ONDANSETRON 4 MG/2 ML VIAL IVP PRN ×2 (10:04→14:20)
[2018-01-13] MEDS ORDERED: NALOXONE 0.4 MG/ML 1 ML VIAL IV PRN (10:04)
[2018-01-13] MEDS ORDERED: ENALAPRILAT 1.25 MG/ML 1 ML VIAL IVP PRN (10:08)
[2018-01-13] MEDS ORDERED: NITROGLYCERIN OINT 1 INCH/GM PACKET TOPICAL STA (10:59)
--- NOTE | 2018-01-13 14:19 | P.HPIM ---
History of Present Illness H&P Date: 01/13/18 Chief Complaint: right upper quad pain 85 years old gentleman patient of Dr. Day with past medical history of coronary artery disease status post 4 stent placement in 2000, hyperlipidemia, hypertension, obstructive sleep apnea comes into the ER with complaints of facial numbness numbness of his left hand associated with dysarthria in 2017 for TIA presents in this time with right upper quadrant abdominal pain for almost a week. Pain was severe this morning the patient decided to come to the ER. He does have history of lightheadedness or dizziness but just going on for months. Patient gives history of constipation but denies any black stools or history of peptic ulcer disease. Last colonoscopy 2014 there 1 cm descending colon polyp was resected with scattered diverticulosis. 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 Patient's abdominal pain is at the right upper quadrant and nonradiating i in nature but also endorses flank pain in the right. Vaginal suggestive of a pulse of 50, blood pressure 223/88, saturating well on room air. Etiology of abdominal pain is unclear. Dr. Tran on consult for evaluation of the dissection which does not appear to be due to causing the symptoms. Appears to be a muscular spasm causing the pain though will be evaluated tomorrow in the morning. Labs obtained Positive for creatinine of 1.04 close to baseline. Hemoglobin 12.1 stable compared to previous labs. Patient received 2 doses of Vasotec and 6 mg in total of morphine to control the pain. Toradol initiated for pain control. Review of Systems Constitutional: Denies chills, Denies fever, Denies lethargy, Denies malaise, Denies poor appetite, Denies weakness, Denies weight loss Eyes: denies decreased vision, denies diplopia, denies discharge, denies pain Ears: deny: decreased hearing Ears, nose, mouth and throat: Denies dental pain, Denies headache, Denies nasal discharge, Denies nose pain Cardiovascular: Denies chest pain, Denies decreased exercise tolerance, Denies edema, Denies high blood pressure, Denies irregular heart beat, Denies palpitations, Denies paroxysmal nocturnal dyspnea, Denies rapid heart beat, Denies shortness of breath Respiratory: Denies congestion, Denies cough, Denies cough with sputum, Denies dyspnea, Denies home oxygen, Denies wheezing Gastrointestinal: Denies abdominal pain, Denies change in bowel habits, Denies coffee ground emesis, Denies early satiety, Denies excessive gas, Denies heartburn, Denies hematemesis, Denies hematochezia, Denies loss of appetite, Denies nausea, Denies vomiting Genitourinary: Denies dysuria, Denies flank pain, Denies kidney stones, Denies menorrhagia, Denies urgency, Denies urinary frequency Musculoskeletal: Denies gait dysfunction, Denies limitation of motion, Denies morning stiffness, Denies muscle cramps Integumentary: Denies rash, Denies wounds, Denies brittle nails, Denies change in hair/nails, Denies darkening of skin Neurological: Endorses balance difficulties, Denies change in speech, Denies double vision, endorses gait dysfunction, Denies loss of vision, Denies motor disturbance, Denies numbness, Denies paralysis, Denies paresthesias, Denies seizures Psychiatric: Denies anxiety, Denies depression endorses dizziness Endocrine: Denies excessive sweating, Denies excessive thirst, Denies high blood sugars, Denies palpitations Hematologic/Lymphatic: Denies easy bruising, Denies lymphadenopathy Past Medical History Past Medical History: Coronary Artery Disease (CAD), CVA/TIA, Eye Disorder, GERD /Reflux, Hyperlipidemia, Hypertension, Osteoarthritis (OA), Prostate Disorder, Sleep Apnea/CPAP/BIPAP Additional Past Medical History / Comment(s): TIFFANIE with O2 at 2L/NC at HS, R eye macular degeneration with injections, 09/2017 TIAx 2, hiatal hernia, constipation , migraines, BPH, urinary retention, diverticulosis, benign colon polyps, hypoglycemia. History of Any Multi-Drug Resistant Organisms: None Reported Past Surgical History: Appendectomy, Back Surgery, Heart Catheterization With Stent Additional Past Surgical History / Comment(s): L caratid endartectomy, PCI with stents, L4-L5 laminectomy/cage, colonoscopies/benign polypectomy, sinus surgery for polyps, pilonidal cyst surgery, abdominal abscess surgery, cystoscopy, bilateral cataract removals with lens implants. Past Anesthesia/Blood Transfusion Reactions: No Reported Reaction Date of Last Stent Placement:: 2000 Smoking Status: Former smoker - Past Family History Mother Family Medical History: Dementia, Myocardial Infarction ([place]) Additional Family Medical History / Comment(s): Mother of dementia at the age of 73yrs. Father Family Medical History: Myocardial Infarction ([place]) Additional Family Medical History / Comment(s): Father had a NE at the age of 73 yrs. Sister(s) Family Medical History: Cancer, Myocardial Infarction ([place]) Additional Family Medical History / Comment(s): 2 sisters lung and kidney ca,1 sister NE Brother(s) Family Medical History: Cancer, Myocardial Infarction ([place]) Additional Family Medical History / Comment(s): 1 brother with lung cancer, 1 brother with colon cancer, 1 brother with bone cancer, 1 brother had a NE. Medications and Allergies Home Medications Medication Instructions Recorded Confirmed Type Aspirin 325 mg PO DAILY 04/26/14 01/13/18 History Omeprazole [PriLOSEC] 20 mg PO AC-BRKFST 04/26/14 01/13/18 History Sertraline HCl [Zoloft] 100 mg PO QAM 04/26/14 01/13/18 History Terazosin [Hytrin] 5 mg PO HS 04/26/14 01/13/18 History amLODIPine [Norvasc] 2.5 mg PO DAILY 05/21/17 01/13/18 History Atenolol [Tenormin] 50 mg PO DAILY 09/30/17 01/13/18 History Atorvastatin [Lipitor] 40 mg PO HS #30 tablet 10/01/17 01/13/18 Rx Allergies Allergy/AdvReac Type Severity Reaction Status Date / Time MSG AdvReac BLURRED Uncoded 01/13/18 06:50 VISION, HEADACHE Physical Exam Vitals: Vital Signs Temp Pulse Resp BP Pulse Ox 01/13/18 13:09 98 F 54 L 18 139/62 98 01/13/18 11:05 50 L 16 194/89 94 L 01/13/18 09:42 50 L 16 198/90 01/13/18 09:21 51 L 16 198/89 94 L 01/13/18 08:36 50 L 16 223/88 94 L 01/13/18 07:49 58 L 16 226/95 95 01/13/18 06:48 98 F 62 20 205/78 97 Intake and Output 01/12/18 01/13/18 01/13/18 22:59 06:59 14:59 Other: Weight 90.718 kg - Constitutional General appearance: cooperative, no acute distress, obese - EENT Eyes: anicteric sclerae, PERRLA, normal appearance ENT: hearing grossly normal - Neck Neck: no lymphadenopathy, normal ROM, no other, no rigidity, no stridor, no thyromegaly - Respiratory Respiratory: bilateral: CTA, negative: diminished, dullness, rales, rhonchi - Cardiovascular Rhythm: regular Heart sounds: normal: S1, S2 Abnormal Heart Sounds: 2/5 systolic murmur, no diastolic murmur, no rub, no S3 Gallop, no S4 Gallop, pulses palpable bilaterally all extremities 2+, cold extremities - Gastrointestinal General gastrointestinal: normal bowel sounds, soft tender in the right upper quadrant and right flank - Integumentary Integumentary: no rash - Neurologic Neurologic: CNII-XII intact - Musculoskeletal Musculoskeletal: gait normal, strength equal bilaterally - Psychiatric Psychiatric: A&O x's 3, appropriate affect Results CBC & Chem 7: 01/13/18 07:38 01/13/18 07:38 Labs: Abnormal Lab Results - Last 24 Hours (Table) 01/13/18 01/13/18 Range/Units 07:38 07:38 RBC 3.71 L (4.30-5.90) m/uL Hgb 12.0 L (13.0-17.5) gm/dL Hct 35.2 L (39.0-53.0) % Plt Count 146 L (150-450) k/uL Carbon Dioxide 31 H (22-30) mmol/L Thrombosis Risk Factor Assmnt - DVT/VTE Prophylaxis DVT/VTE Prophylaxis: Pharmacologic Prophylaxis ordered - Choose All That Apply Any of the Below Risk Factors Present?: Yes Each Factor Represents 1 point: Obesity (BMI >25) Other Risk Factors: Yes Each Risk Factor Represents 3 Points: Age 75 years or older Other congenital or acquired thrombophilia - If yes, enter type in comment: No Thrombosis Risk Factor Assessment Total Risk Factor Score: 4 Thrombosis Risk Factor Assessment Level: Moderate Risk Assessment and Plan Plan: #1 hypertensive urgency controlled on the Zyrtec and pain control. Home medications resumed included amlodipine and terazosin with atenolol. With a history of aortic dissection patient's: Systolic blood pressure less than 140. #2 right upper quadrant abdominal pain of unclear etiology. Likely musculoskeletal as patient was working in the yard prior to the onset of the symptoms. Stable hepatic lesion unlikely to cause symptoms. LFTs are normal. Patient to be evaluated tomorrow for further findings. Vitals are stablesigns of hemodynamic compromise.Pain control with Toradol 15 every 6. No sign of diverticulitis on the CT abdomen. No sign of gallbladder inflammation. #3 constipation senna and Colace ordered. #4 lymph node enlargement 1.5 X 1.3 centimeter along the right gonadal vein needs further follow-up with the PET scan as outpatient. #5 history of coronary artery disease status post for stent placed in 2000. Continue aspirin 325 mg, Lipitor 40 mg, atenolol 50 mg by mouth daily. #6 history of TIA in September 2017 continue aspirin and Lipitor #7 hyperlipidemia continue Lipitor 40 mg by mouth daily #8 hypertension continue amlodipine, atenolol #9 CODE STATUS full code #10 DVT prophylaxis with heparin every 12 #11 GI prophylaxis with Prilosec 20 mg daily #12 depression continue Zoloft 100 mg every morning
[2018-01-13] MEDS ORDERED: ACETAMINOPHEN TAB 325 MG TAB PO PRN (14:20)
[2018-01-13] MEDS ORDERED: IPRATROPIUM-ALBUTEROL 3 ML NEB INHALATION PRN (14:20)
[2018-01-13] MEDS: amLODIPine 5 MG TAB PO SCH (16:07)
--- NOTE | 2018-01-13 16:57 | CONS ---
CONSULTATION This 87-year-old gentleman who is well known to me from my office. The patient came with a history of right-sided lumbar pain. According to the patient, he was working the yard and when he stood up, he felt pain in his on the right side and he was brought to the emergency room. The patient had a CT which showed a chronic dissection of the aorta. MEDICAL HISTORY: History of coronary artery disease, history of left carotid endarterectomy done by me in the past. A history of hyperlipidemia, history of hypertension, history of sleep apnea. SURGICAL HISTORY: Patient had a appendectomy, back surgery, right carotid endarterectomy done in the past. PHYSICAL EXAMINATION: Patient was seen in his room. He is lying comfortably in bed. NECK: Supple, trachea central. CHEST: Clear to auscultation. ABDOMEN: Soft. Femoral pulses are palpable. IMPRESSION: Chronic dissection of the aorta, most likely this is musculoskeletal pain. The patient is stable from surgical point of view. MMODL / IJN: [id number] /
[2018-01-13] MEDS: KETOROLAC 30 MG/ML 1 ML VIAL IVP SCH ×2 (17:41→20:36)
[2018-01-13] MEDS: HEPARIN SODIUM,PORCINE 5,000 UNIT/ML 1 ML VIAL SQ SCH (20:36)
[2018-01-13] MEDS ORDERED: DOXAZOSIN 4 MG TAB PO SCH (21:00)
[2018-01-13] MEDS ORDERED: ATORVASTATIN 40 MG TAB PO SCH (21:00)
[2018-01-13] MEDS ORDERED: hydrALAZINE HCL 20 MG/ML 1 ML VIAL IVP PRN (21:09)
[2018-01-13] MEDS: LISINOPRIL 5 MG TAB PO SCH (21:30)
[2018-01-14] MEDS: KETOROLAC 30 MG/ML 1 ML VIAL IVP SCH ×2 (04:21→08:13)
[2018-01-14 06:17] LABS: Albumin 3.2 g/dL (3.5-5.0); Calcium 8.7 mg/dL (8.4-10.2); Potassium 3.8 mmol/L (3.5-5.1); Total Bilirubin 0.4 mg/dL (0.2-1.3); Total Protein 5.4 g/dL (6.3-8.2)
[2018-01-14 06:18] LABS: Basophils % (A) 0 %; Eosinophils # (A) 0.2 k/uL (0-0.7); Eosinophils % (A) 4 %; HCT 33.9 % (39.0-53.0); HGB 11.3 gm/dL (13.0-17.5); Lymphocytes # (A) 1.2 k/uL (1.0-4.8); Lymphocytes % (A) 28 %; MCH 32.3 pg (25.0-35.0); MCHC 33.4 g/dL (31.0-37.0); MCV 96.7 fL (80.0-100.0); Monocytes # (A) 0.3 k/uL (0-1.0); Monocytes % (A) 7 %; Neutrophils # (A) 2.5 k/uL (1.3-7.7); Neutrophils % (A) 59 %; Platelet Count 153 k/uL (150-450); RBC 3.51 m/uL (4.30-5.90); RDW 13.4 % (11.5-15.5); WBC 4.4 k/uL (3.8-10.6)
[2018-01-14 06:19] VITALS: RESP 16
[2018-01-14] MEDS ORDERED: PANTOPRAZOLE 40 MG TABLET PO SCH (07:30)
[2018-01-14] MEDS: LISINOPRIL 5 MG TAB PO SCH (08:14)
[2018-01-14] MEDS: amLODIPine 5 MG TAB PO SCH (08:14)
[2018-01-14 08:17] VITALS: TEMP 97.6
[2018-01-14] MEDS ORDERED: ASPIRIN 325 MG TAB PO SCH (09:00)
[2018-01-14] MEDS ORDERED: amLODIPine 2.5 MG TAB PO SCH (09:00)
[2018-01-14] MEDS ORDERED: ATENOLOL 50 MG TAB PO SCH (09:00)
[2018-01-14] MEDS ORDERED: SERTRALINE 100 MG TAB PO SCH (09:00)
[2018-01-14 11:39] VITALS: BP 158/70; PULSE 57
[2018-01-14] MEDS: HEPARIN SODIUM,PORCINE 5,000 UNIT/ML 1 ML VIAL SQ SCH (11:41)
--- NOTE | 2018-01-18 13:53 | P.DS ---
Providers Date of admission: 01/13/18 10:04 Expected date of discharge: 01/18/18 Attending physician: Natalie Riley MD Consults: 01/13/18 10:04 Consult Physician Stat Consulting Provider: Carlos Tran Consult Reason/Comments: ch aortic decssection Do you want consulting provider notified?: Yes Primary care physician: Jefferson Day [facility] Course: 85 years old gentleman patient of Dr. Day with past medical history of coronary artery disease status post 4 stent placement in 2000, hyperlipidemia, hypertension, obstructive sleep apnea comes into the ER with complaints of facial numbness numbness of his left hand associated with dysarthria in 2017 for TIA presents in this time with right upper quadrant abdominal pain for almost a week. Pain was severe this morning the patient decided to come to the ER. He does have history of lightheadedness or dizziness but just going on for months. Patient gives history of constipation but denies any black stools or history of peptic ulcer disease. Last colonoscopy 2014 there 1 cm descending colon polyp was resected with scattered diverticulosis. 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 Patient's abdominal pain is at the right upper quadrant and nonradiating i in nature but also endorses flank pain in the right. Vaginal suggestive of a pulse of 50, blood pressure 223/88, saturating well on room air. Etiology of abdominal pain is unclear. Dr. Tran on consult for evaluation of the dissection which does not appear to be due to causing the symptoms. Appears to be a muscular spasm causing the pain though will be evaluated tomorrow in the morning. Labs obtained Positive for creatinine of 1.04 close to baseline. Hemoglobin 12.1 stable compared to previous labs. Patient received 2 doses of Vasotec and 6 mg in total of morphine to control the pain. Toradol initiated for pain control. 01/14: Patient has been seen by Dr. Tran and states the patient is stable from a surgical point. The dissection of aorta as chronic and his pain is most likely musculoskeletal. Patient is cleared for discharge home today in stable condition. Discharge diagnoses: #1 hypertensive emergency #2 right upper quadrant abdominal pain of unclear etiology. Likely musculoskeletal #3 constipation #4 lymph node enlargement 1.5 X 1.3 centimeter along the right gonadal vein needs further follow-up with the PET scan as outpatient. #5 history of coronary artery disease status post for stent placed in 2000. #6 history of TIA in September 2017 #7 hyperlipidemia #8 hypertension #9 depression, recurrent Discharge plan: Return home Impression and plan of care have been directed as dictated by the signing physician. Myrtle Millan nurse practitioner acting as scribe for signing physician. Patient Condition at Discharge: Good Plan - Discharge Summary Discharge Rx Participant: No New Discharge Prescriptions: New amLODIPine [Norvasc] 5 mg PO DAILY #30 tab Lisinopril [Zestril] 5 mg PO DAILY #30 tab Continue Terazosin [Hytrin] 5 mg PO HS Aspirin 325 mg PO DAILY Sertraline HCl [Zoloft] 100 mg PO QAM Omeprazole [PriLOSEC] 20 mg PO AC-BRKFST Atenolol [Tenormin] 50 mg PO DAILY Atorvastatin [Lipitor] 40 mg PO HS #30 tablet Discontinued amLODIPine [Norvasc] 2.5 mg PO DAILY Discharge Medication List Aspirin 325 mg PO DAILY 04/26/14 [History] Omeprazole [PriLOSEC] 20 mg PO AC-BRKFST 04/26/14 [History] Sertraline HCl [Zoloft] 100 mg PO QAM 04/26/14 [History] Terazosin [Hytrin] 5 mg PO HS 04/26/14 [History] Atenolol [Tenormin] 50 mg PO DAILY 09/30/17 [History] Atorvastatin [Lipitor] 40 mg PO HS #30 tablet 10/01/17 [Rx] Lisinopril [Zestril] 5 mg PO DAILY #30 tab 01/14/18 [Rx] amLODIPine [Norvasc] 5 mg PO DAILY #30 tab 01/14/18 [Rx] Follow up Appointment(s)/Referral(s): Jefferson Day DO [Primary Care Provider] - 1-2 days (Spoke to wildlife biology technician. Office will call when an appointment is available) Patient Instructions/Handouts: Hypertension (DC) Discharge Disposition: HOME SELF-CARE
== END 2018-01-14 12:20 | disposition home or self-care (01) ==
LOC: EC 06:45 → 6SEL 10:04
PROVIDERS: ADMIT Internal Medicine; ATTEND Internal Medicine
DX: I16.1 Hypertensive emergency (principal); R10.11 Right upper quadrant pain; M54.5 Low back pain; K59.00 Constipation, unspecified; R59.9 Enlarged lymph nodes, unspecified; I25.10 Atherosclerotic heart disease of native coronary artery without angina pectoris; Z95.5 Presence of coronary angioplasty implant and graft; Z86.73 Personal history of transient ischemic attack (TIA), and cerebral infarction without residual deficits; E78.5 Hyperlipidemia, unspecified; I10 Essential (primary) hypertension; F33.9 Major depressive disorder, recurrent, unspecified; G47.33 Obstructive sleep apnea (adult) (pediatric); Z86.010 Personal history of colon polyps; I71.00 Dissection of unspecified site of aorta; K21.9 Gastro-esophageal reflux disease without esophagitis; Z90.49 Acquired absence of other specified parts of digestive tract; Z79.82 Long term (current) use of aspirin; Z79.899 Other long term (current) drug therapy; Z91.048 Other nonmedicinal substance allergy status; Z99.89 Dependence on other enabling machines and devices; N40.1 Benign prostatic hyperplasia with lower urinary tract symptoms; G43.909 Migraine, unspecified, not intractable, without status migrainosus; Z99.81 Dependence on supplemental oxygen; Z87.891 Personal history of nicotine dependence; Z80.0 Family history of malignant neoplasm of digestive organs; Z80.1 Family history of malignant neoplasm of trachea, bronchus and lung; Z80.51 Family history of malignant neoplasm of kidney; Z80.8 Family history of malignant neoplasm of other organs or systems; M19.90 Unspecified osteoarthritis, unspecified site; R33.8 Other retention of urine; K57.90 Diverticulosis of intestine, part unspecified, without perforation or abscess without bleeding; Z81.8 Family history of other mental and behavioral disorders; E66.9 Obesity, unspecified; Z68.26 Body mass index [BMI] 26.0-26.9, adult
CPT/HCPCS: 99285; 96374; 96375 ×4; 96361 ×2; 96376 ×3; 96372; 36415; 94640; 97162; 80053 ×2; 82150; 83605; 83690 ×2; 84484; 85025 ×2; 81003; 74177; G0378 ×2; J0360; J1644; J2405; J1885; J2270; Q9967

== ENCOUNTER → 2018-12-20 | Outpatient (CLI) | payer MEDICARE, OTHER ==
--- NOTE | 2018-12-20 11:36 | XR ---
EXAMINATION TYPE: XR chest 2V DATE OF EXAM: 12/20/2018 COMPARISON: CXR from 09/30/2017. HISTORY: Left-sided chest pain for 3 days. TECHNIQUE: Frontal and lateral views of the chest are obtained. FINDINGS: There is no focal air space opacity, pleural effusion, or pneumothorax seen. The cardiac silhouette size is stable and mildly enlarged. Coronary stent left circumflex is redemonstrated The osseous structures are intact. IMPRESSION: Mild cardiomegaly without acute pulmonary process. No significant change from prior.
== END | disposition home or self-care (01) ==
LOC: RADXRMAIN 11:11
PROVIDERS: ATTEND Family Medicine
DX: I51.7 Cardiomegaly (principal); R07.89 Other chest pain
CPT/HCPCS: 71046

== ENCOUNTER → 2019-01-14 | Outpatient (CLI) | payer MEDICARE, OTHER ==
--- NOTE | 2019-01-14 11:11 | XR ---
EXAMINATION TYPE: XR knee 4V RT DATE OF EXAM: 01/14/2019 CLINICAL HISTORY: Fall injury 3 days ago with pain and skin abrasion. TECHNIQUE: Three views of the right knee are obtained. For sunrise view was acquired. COMPARISON: None. FINDINGS: There is well-defined breakthrough upper outer aspect patella strongly favoring bipartite p atella. There is no acute fracture/dislocation evident in right knee. The tri-compartment joint [facility] [place] appear within normal limits. Patella articulation is within normal limits on sunrise view. Mild-t o-moderate subcutaneous edema anterior to patella is noted. IMPRESSION: There is no acute fracture or dislocation in the right knee.
== END | disposition home or self-care (01) ==
LOC: RADXRMAIN 10:39
PROVIDERS: ATTEND Family Medicine
DX: M25.561 Pain in right knee (principal)

== ENCOUNTER 2019-01-28 10:44 | Emergency (ER) | payer MEDICARE, OTHER ==
[2019-01-28 10:50] VITALS: RESP 18
[2019-01-28] MEDS ORDERED: LIDOCAINE 5% PATCH TOPICAL STA (11:03)
--- NOTE | 2019-01-28 11:06 | ED ---
General Adult HPI - General Chief complaint: Fall Stated complaint: FALL X 3, RIB PAIN Time Seen by Provider: 01/28/19 10:55 Source: patient Mode of arrival: ambulatory Limitations: no limitations - History of Present Illness Initial comments: Dictation was produced using [employer] dictation software. please excuse any grammatical, word or spelling errors. Chief Complaint: 88-year-old male with multiple comorbidities presents with rib pain after falling guarded. History of Present Illness: 88-year-old male who has multiple comorbidities. Yesterday he was tried to put water in his. Back. He went and told the water hose dragon more length. He then turned quickly his foot caught on to something causing him to fall on his right side. Patient states that the event happened at approximately 5 PM yesterday. Patient denies any head pain or neck pain. Patient complains of some mild right anterior rib pain. Has no other complaints at this time. The ROS documented in this emergency department record has been reviewed and confirmed by me. Those systems with pertinent positive or negative responses have been documented in the HPI. All other systems are other negative and/or noncontributory. PHYSICAL EXAM: General Impression: Alert and oriented x3, not in acute distress HEENT: Normocephalic atraumatic, extra-ocular movements intact, pupils equal and reactive to light bilaterally, mucous membranes moist. Cardiovascular: Heart regular rate and rhythm, S1&S2 audible, no murmurs, rubs or gallops Chest: Lungs clear to auscultation bilaterally, no rhonchi, no wheeze, no rales, tenderness to palpation over the right lower anterior chest, directly over the rib Abdomen: Bowel sounds present, abdomen soft, non-tender, non-distended, no organomegaly Musculoskeletal: Pulses present and equal in all extremities, no peripheral edema Motor: no focal deficits noted Neurological: CN II-XII grossly intact, no focal motor or sensory deficits noted Skin: Intact with no visualized rashes Psych: Normal affect and mood ED course: 88-year-old male presents after fall. It happened almost 24 hours ago. Patient solitary complaint of right anterior rib pain. Physical examination is benign. No other signs of trauma. As upon arrival are within acceptable limits. History is consistent with mechanical fall. Patient is not on any anticoagulation.X-ray is unremarkable. Patient given Lidoderm patch. He is observed in the emergency department. Patient reevaluated and found to be in stable medical condition. Patient resting comfortably and not in significant pain. Does report a solution of his symptoms after application of Lidoderm patch. This point given patient's clinical presentation and how well-appearing he is adamantly patient is to be further evaluated. Patient's symptoms more consistent with chest strain versus nondisplaced rib fracture. Regardless patient clear for discharge to follow-up with primary care physician. Return parameters discussed. Patient agreeable we will with disposition. - Related Data Home Medications Medication Instructions Recorded Confirmed Aspirin 325 mg PO DAILY 04/26/14 01/28/19 Omeprazole [PriLOSEC] 20 mg PO [id number] 04/26/14 01/28/19 Sertraline HCl [Zoloft] 100 mg PO QAM 04/26/14 01/28/19 Terazosin [Hytrin] 5 mg PO HS 04/26/14 01/28/19 Atenolol [Tenormin] 50 mg PO DAILY 09/30/17 01/28/19 Previous Rx's Medication Instructions Recorded Atorvastatin [Lipitor] 40 mg PO HS #30 tablet 10/01/17 amLODIPine [Norvasc] 5 mg PO DAILY #30 tab 01/14/18 Allergies Allergy/AdvReac Type Severity Reaction Status Date / Time MSG AdvReac BLURRED Uncoded 01/28/19 11:21 VISION, HEADACHE Review of Systems ROS Statement: Those systems with pertinent positive or pertinent negative responses have been documented in the HPI. ROS Other: All systems not noted in ROS Statement are negative. Past Medical History Past Medical History: Coronary Artery Disease (CAD), CVA/TIA, Eye Disorder, GERD/Reflux, Hyperlipidemia, Hypertension, Osteoarthritis (OA), Prostate Disorder, Sleep Apnea/CPAP/BIPAP Additional Past Medical History / Comment(s): TIFFANIE with O2 at 2L/NC at HS, R eye macular degeneration with injections, 09/2017 TIAx 2, hiatal hernia, constipation, migraines, BPH, urinary retention, diverticulosis, benign colon polyps, hypoglycemia. History of Any Multi-Drug Resistant Organisms: None Reported Past Surgical History: Appendectomy, Back Surgery, Heart Catheterization With Stent Additional Past Surgical History / Comment(s): L caratid endartectomy, PCI with stents, L4-L5 laminectomy/cage, colonoscopies/benign polypectomy, sinus surgery for polyps, pilonidal cyst surgery, abdominal abscess surgery, cystoscopy, bilateral cataract removals with lens implants. Past Anesthesia/Blood Transfusion Reactions: No Reported Reaction Date of Last Stent Placement:: 2000 Past Psychological History: No Psychological Hx Reported Smoking Status: Former smoker Past Alcohol Use History: None Reported Past Drug Use History: None Reported - Past Family History Mother Family Medical History: Dementia, Myocardial Infarction ([place]) Additional Family Medical History / Comment(s): Mother of dementia at the age of 73yrs. Father Family Medical History: Myocardial Infarction ([place]) Additional Family Medical History / Comment(s): Father had a [place] at the age of 73 yrs. Sister(s) Family Medical History: Cancer, Myocardial Infarction ([place]) Additional Family Medical History / Comment(s): 2 sisters lung and kidney ca,1 sister [place] Brother(s) Family Medical History: Cancer, Myocardial Infarction ([place]) Additional Family Medical History / Comment(s): 1 brother with lung cancer, 1 brother with colon cancer, 1 brother with bone cancer, 1 brother had a [place]. General Exam Limitations: no limitations Course Vital Signs 01/28/19 10:45 Temperature 98.3 F Pulse Rate 59 L Respiratory 18 Rate Blood Pressure 151/59 O2 Sat by Pulse 99 Oximetry Disposition Clinical Impression: Fall, Strain of chest wall Disposition: HOME SELF-CARE Condition: Good Instructions (If sedation given, give patient instructions): Fall Prevention for Older Adults (ED) Is patient prescribed a controlled substance at d/c from ED?: No Referrals: Jefferson Day DO [Primary Care Provider] - 1-2 days Time of Disposition: 12:56
--- NOTE | 2019-01-28 11:44 | XR ---
EXAMINATION TYPE: XR chest 2V DATE OF EXAM: 01/28/2019 HISTORY: Pain. REFERENCE: Previous study dated 12/20/2018. FINDINGS: The lungs appear clear. The heart is mildly enlarged. I do not see evidence of superimposed pneumonia or edema. No pleural fluid is seen. There is no evidence of pneumothorax. No displaced rib fracture is seen. IMPRESSION: MILD CARDIOMEGALY.
[2019-01-28 13:16] VITALS: BP 190/84; PULSE 54; TEMP 97.1
== END 2019-01-28 13:14 | disposition home or self-care (01) ==
LOC: EC 10:44
DX: S29.011A Strain of muscle and tendon of front wall of thorax, initial encounter (principal); I25.10 Atherosclerotic heart disease of native coronary artery without angina pectoris; K21.9 Gastro-esophageal reflux disease without esophagitis; I10 Essential (primary) hypertension; G47.33 Obstructive sleep apnea (adult) (pediatric); Z99.89 Dependence on other enabling machines and devices; Z86.73 Personal history of transient ischemic attack (TIA), and cerebral infarction without residual deficits; Z95.5 Presence of coronary angioplasty implant and graft; Z87.891 Personal history of nicotine dependence; Z79.82 Long term (current) use of aspirin; Z79.899 Other long term (current) drug therapy; Z88.8 Allergy status to other drugs, medicaments and biological substances; W19.XXXA Unspecified fall, initial encounter; Y92.89 Other specified places as the place of occurrence of the external cause
CPT/HCPCS: 71046; 99283

== ENCOUNTER 2019-07-18 15:01 | Observation (INO) | payer MEDICARE, OTHER ==
[2019-07-18] MEDS ORDERED: SODIUM CHLORIDE 0.9% 500 ML 500 ML IV STA (15:32)
--- NOTE | 2019-07-18 15:40 | ED ---
General Adult HPI - General Chief complaint: Neuro Symptoms/Deficit Stated complaint: off balance, not feeling right Time Seen by Provider: 07/18/19 15:05 Source: patient, RN notes reviewed, old records reviewed Mode of arrival: wheelchair Limitations: no limitations - History of Present Illness Initial comments: This is an 88-year-old male who presents emergency department stating that at 2:30 he was going to get out and go to dinner when he notices right leg was not functioning properly he was unable to get up into his truck. states at that time he was also slurring his speech. Symptoms seemed to last for about 15 minutes and then they resolve. Patient states currently he has no complaints and feels fine. Patient states she woke up today feeling fine without any symptoms. Patient denies any chest pain difficulty breathing first breath per patient denies any recent fever chills or cough. Patient denies any headache patient denies any lightheadedness or dizziness. Patient is completely asymptomatic at this time. - Related Data Home Medications Medication Instructions Recorded Confirmed Aspirin 325 mg PO DAILY 04/26/14 07/18/19 Omeprazole [PriLOSEC] 20 mg PO DAILY 04/26/14 07/18/19 Sertraline HCl [Zoloft] 100 mg PO DAILY 04/26/14 07/18/19 Terazosin [Hytrin] 5 mg PO BID 04/26/14 07/18/19 Atenolol [Tenormin] 50 mg PO DAILY 09/30/17 07/18/19 Cyanocobalamin (Vitamin B-12) 5,000 mcg PO DAILY 07/18/19 07/18/19 [Vitamin B-12] Escitalopram [Lexapro] 10 mg PO DAILY 07/18/19 07/18/19 Nitroglycerin Sl Tabs [Nitrostat] 0.4 mg SUBLINGUAL Q5M PRN 07/18/19 07/18/19 amLODIPine [Norvasc] 2.5 mg PO DAILY 07/18/19 07/18/19 Previous Rx's Medication Instructions Recorded Atorvastatin [Lipitor] 40 mg PO HS #30 tablet 10/01/17 Allergies Allergy/AdvReac Type Severity Reaction Status Date / Time MSG AdvReac BLURRED Uncoded 07/18/19 17:09 VISION, HEADACHE Review of Systems ROS Statement: Those systems with pertinent positive or pertinent negative responses have been documented in the HPI. ROS Other: All systems not noted in ROS Statement are negative. Past Medical History Past Medical History: Coronary Artery Disease (CAD), CVA/TIA, Eye Disorder, GERD/Reflux, Hyperlipidemia, Hypertension, Osteoarthritis (OA), Prostate Disorder, Sleep Apnea/CPAP/BIPAP Additional Past Medical History / Comment(s): TIFFANIE with O2 at 2L/NC at HS, R eye macular degeneration with injections, 09/2017 TIAx 2, hiatal hernia, constipation, migraines, BPH, urinary retention, diverticulosis, benign colon polyps, hypoglycemia. History of Any Multi-Drug Resistant Organisms: None Reported Past Surgical History: Appendectomy, Back Surgery, Heart Catheterization With Stent Additional Past Surgical History / Comment(s): L caratid endartectomy, PCI with stents, L4-L5 laminectomy/cage, colonoscopies/benign polypectomy, sinus surgery for polyps, pilonidal cyst surgery, abdominal abscess surgery, cystoscopy, bi lateral cataract removals with lens implants. Past Anesthesia/Blood Transfusion Reactions: No Reported Reaction Date of Last Stent Placement:: 2000 Past Psychological History: No Psychological Hx Reported Smoking Status: Former smoker Past Alcohol Use History: None Reported Past Drug Use History: None Reported - Past Family History Mother Family Medical History: Dementia, Myocardial Infarction ([place]) Additional Family Medical History / Comment(s): Mother of dementia at the age of 73yrs. Father Family Medical History: Myocardial Infarction ([place]) Additional Family Medical History / Comment(s): Father had a [place] at the age of 73 yrs. Sister(s) Family Medical History: Cancer, Myocardial Infarction ([place]) Additional Family Medical History / Comment(s): 2 sisters lung and kidney ca,1 sister [place] Brother(s) Family Medical History: Cancer, Myocardial Infarction ([place]) Additional Family Medical History / Comment(s): 1 brother with lung cancer, 1 brother with colon cancer, 1 brother with bone cancer, 1 brother had a [place]. General Exam - General Exam Comments Initial Comments: GENERAL: Patient is well-developed and well-nourished. Patient is nontoxic and well- hydrated and is in no acute distress. ENT: Neck is soft and supple. No significant lymphadenopathy is noted. Oropharynx is clear. Moist mucous membranes. Neck has full range of motion without eliciting any pain. EYES: The sclera were anicteric and conjunctiva were pink and moist. Extraocular movements were intact and pupils were equal round and reactive to light. Eyelids were unremarkable. PULMONARY: Unlabored respirations. Good breath sounds bilaterally. No audible rales rhonchi or wheezing was noted. CARDIOVASCULAR: There is a regular rate and rhythm without any murmurs gallops or rubs. ABDOMEN: Soft and nontender with normal bowel sounds. No palpable organomegaly was noted. There is no palpable pulsatile mass. SKIN: Skin is clear with no lesions or rashes and otherwise unremarkable. NEUROLOGIC: Patient is alert and oriented x3. Cranial nerves II through XII are grossly intact. Motor and sensory are also intact. Normal speech, volume and content. Symmetrical smile. Patient has an NIH of 0 MUSCULOSKELETAL: Normal extremities with adequate strength and full range of motion. No lower extremity swelling or edema. No calf tenderness. LYMPHATICS: No significant lymphadenopathy is noted PSYCHIATRIC: Normal psychiatric evaluation. Limitations: no limitations Course Vital Signs 07/18/19 07/18/19 07/18/19 15:03 15:12 15:20 Temperature 97.8 F Pulse Rate 51 L 52 L Respiratory 20 23 12 Rate Blood Pressure 159/70 200/81 O2 Sat by Pulse 98 95 Oximetry 07/18/19 07/18/19 07/18/19 15:30 15:40 15:50 Temperature 97.8 F Pulse Rate 51 L 50 L 49 L Respiratory 20 20 14 Rate Blood Pressure 200/81 181/102 205/86 O2 Sat by Pulse 98 99 100 Oximetry 07/18/19 07/18/19 07/18/19 16:00 16:10 16:20 Temperature Pulse Rate 49 L 50 L Respiratory 14 14 Rate Blood Pressure 205/86 222/78 221/89 O2 Sat by Pulse 100 100 Oximetry 07/18/19 07/18/19 07/18/19 16:30 16:40 16:50 Temperature Pulse Rate 49 L 50 L 49 L Respiratory 20 11 L 16 Rate Blood Pressure 221/89 232/93 219/93 O2 Sat by Pulse 100 100 Oximetry Medical Decision Making - Medical Decision Making EKG shows sinus bradycardia at 54 bpm NE interval is 252 QRS is 94 QT interval 466 QTC is 441. There is no ST segment elevation or depression Computed tomography scan of the brain showed no acute abnormality. Chest x-ray showed no acute abnormality. I spoke with Dr. Solomon she agreed to admit the patient admitted the patient wrote admitting orders. - Lab Data Result diagrams: 07/18/19 15:38 07/18/19 15:38 Lab Results 07/18/19 07/18/19 07/18/19 Range/Units 15:38 15:38 15:38 WBC 4.2 (3.8-10.6) k/uL RBC 3.59 L (4.30-5.90) m/uL Hgb 11.7 L (13.0-17.5) gm/dL Hct 33.5 L (39.0-53.0) % MCV 93.3 (80.0-100.0) fL MCH 32.5 (25.0-35.0) pg MCHC 34.9 (31.0-37.0) g/dL RDW 13.3 (11.5-15.5) % Plt Count 131 L (150-450) k/uL Neutrophils % 53 % Lymphocytes % 34 % Monocytes % 6 % Eosinophils % 3 % Basophils % 2 % Neutrophils # 2.3 (1.3-7.7) k/uL Lymphocytes # 1.4 (1.0-4.8) k/uL Monocytes # 0.3 (0-1.0) k/uL Eosinophils # 0.1 (0-0.7) k/uL Basophils # 0.1 (0-0.2) k/uL PT 11.1 (9.0-12.0) sec INR 1.1 (<1.2) APTT 24.3 (22.0-30.0) sec Sodium 138 (137-145) mmol/L Potassium 4.1 (3.5-5.1) mmol/L Chloride 104 (98-107) mmol/L Carbon Dioxide 28 (22-30) mmol/L Anion Gap 6 mmol/L BUN 23 H (9-20) mg/dL Creatinine 1.11 (0.66-1.25) mg/dL Est GFR (CKD-EPI)AfAm 68 (>60 ml/min/1.73 sqM) Est GFR (CKD-EPI)NonAf 59 (>60 ml/min/1.73 sqM) Glucose 91 (74-99) mg/dL Calcium 8.5 (8.4-10.2) mg/dL Total Bilirubin 0.7 (0.2-1.3) mg/dL AST 25 (17-59) U/L ALT 14 (4-49) U/L Alkaline Phosphatase 69 (38-126) U/L Troponin I (0.000-0.034) ng/mL Total Protein 6.6 (6.3-8.2) g/dL Albumin 3.8 (3.5-5.0) g/dL 07/18/19 Range/Units 15:38 WBC (3.8-10.6) k/uL RBC (4.30-5.90) m/uL Hgb (13.0-17.5) gm/dL Hct (39.0-53.0) % MCV (80.0-100.0) fL MCH (25.0-35.0) pg MCHC (31.0-37.0) g/dL RDW (11.5-15.5) % Plt Count (150-450) k/uL Neutrophils % % Lymphocytes % % Monocytes % % Eosinophils % % Basophils % % Neutrophils # (1.3-7.7) k/uL Lymphocytes # (1.0-4.8) k/uL Monocytes # (0-1.0) k/uL Eosinophils # (0-0.7) k/uL Basophils # (0-0.2) k/uL PT (9.0-12.0) sec INR (<1.2) APTT (22.0-30.0) sec Sodium (137-145) mmol/L Potassium (3.5-5.1) mmol/L Chloride (98-107) mmol/L Carbon Dioxide (22-30) mmol/L Anion Gap mmol/L BUN (9-20) mg/dL Creatinine (0.66-1.25) mg/dL Est GFR (CKD-EPI)AfAm (>60 ml/min/1.73 sqM) Est GFR (CKD-EPI)NonAf (>60 ml/min/1.73 sqM) Glucose (74-99) mg/dL Calcium (8.4-10.2) mg/dL Total Bilirubin (0.2-1.3) mg/dL AST (17-59) U/L ALT (4-49) U/L Alkaline Phosphatase (38-126) U/L Troponin I <0.012 (0.000-0.034) ng/mL Total Protein (6.3-8.2) g/dL Albumin (3.5-5.0) g/dL Disposition Clinical Impression: TIA (transient ischemic attack) Disposition: ADMITTED IP TO THIS HOSP Referrals: Jefferson Day DO [Primary Care Provider] - 1-2 days Time of Disposition: 17:57
[2019-07-18 15:51] LABS: Basophils # (A) 0.1 k/uL (0-0.2); Basophils % (A) 2 %; Eosinophils # (A) 0.1 k/uL (0-0.7); Eosinophils % (A) 3 %; HCT 33.5 % (39.0-53.0); HGB 11.7 gm/dL (13.0-17.5); Lymphocytes # (A) 1.4 k/uL (1.0-4.8); Lymphocytes % (A) 34 %; MCH 32.5 pg (25.0-35.0); MCHC 34.9 g/dL (31.0-37.0); MCV 93.3 fL (80.0-100.0); Mean Platelet Volume 9.4; Monocytes # (A) 0.3 k/uL (0-1.0); Monocytes % (A) 6 %; Neutrophils # (A) 2.3 k/uL (1.3-7.7); Neutrophils % (A) 53 %; Platelet Count 131 k/uL (150-450); RBC 3.59 m/uL (4.30-5.90); RDW 13.3 % (11.5-15.5); WBC 4.2 k/uL (3.8-10.6)
[2019-07-18 15:54] LABS: Albumin 3.8 g/dL (3.5-5.0); Calcium 8.5 mg/dL (8.4-10.2); Potassium 4.1 mmol/L (3.5-5.1); Total Bilirubin 0.7 mg/dL (0.2-1.3); Total Protein 6.6 g/dL (6.3-8.2)
[2019-07-18 15:57] LABS: INR 1.1 (<1.2); Partial Thromboplastin Time 24.3 sec (22.0-30.0); Prothrombin Time 11.1 sec (9.0-12.0)
--- NOTE | 2019-07-18 16:19 | CT ---
EXAMINATION TYPE: CT brain wo con DATE OF EXAM: 07/18/2019 COMPARISON: 09/30/17 HISTORY: Weakness. CT DLP: 1182.[address] of the brain was performed. The ventricles, basal cisterns and sulci overlying the cerebral convexities demonstrate mild enlargem ent. There is no evidence for intracranial hemorrhage or sulcal effacement. There is decreased attenuation about the periventricular white matter and deep white matter of both c erebral hemispheres, compatible with chronic small vessel ischemia. Differential diagnosis does inclu de demyelination. No mass effects are seen.No midline shift. Osseous calvarium is intact. If symptoms persist consider MRI. IMPRESSION: 1. Age related atrophic and chronic small vessel ischemic change without acute intracranial process s een at this time.
--- NOTE | 2019-07-18 16:22 | XR ---
EXAMINATION TYPE: XR chest 2V DATE OF EXAM: 07/18/2019 COMPARISON: 01/28/2019 HISTORY: Shortness of breath TECHNIQUE: Frontal and lateral views of the chest are obtained. FINDINGS: Scattered senescent parenchymal changes noted. Hyperinflation compatible with COPD. No evidence for infiltrate. No evidence for atelectasis. Heart size is stable. Mediastinal structures are stable and grossly unremarkable. No evidence for hilar prominence. Degenerative changes dorsal spine. IMPRESSION: 1. No evidence for acute pulmonary disease.
[2019-07-18] MEDS ORDERED: hydrALAZINE HCL 20 MG/ML 1 ML VIAL IVP STA (17:08)
[2019-07-18] MEDS ORDERED: ASPIRIN 325 MG TAB PO STA (17:58)
--- NOTE | 2019-07-18 19:15 | US ---
EXAMINATION TYPE: US carotid duplex BILAT DATE OF EXAM: 07/18/2019 COMPARISON: NONE CLINICAL HISTORY: Stenosis. Stenosis. HTN, hyperlipidemia. Poor historian. EXAM MEASUREMENTS: RIGHT: Peak Systolic Velocity (PSV) cm/sec ----- Right CCA: 133.2 ----- Right ICA: 168.0 ----- Right ECA: 267.0 ICA/CCA ratio: 1.3 RIGHT: End Diastole cm/sec ----- Right CCA: 11.0 ----- Right ICA: 26.3 ----- Right ECA: 5.2 LEFT: Peak Systolic Velocity (PSV) cm/sec ----- Left CCA: 159.4 ----- Left ICA: 150.1 ----- Left ECA: 137.1 ICA/CCA ratio: 0.9 LEFT: End Diastole cm/sec ----- Left CCA: 17.7 ----- Left ICA: 17.7 ----- Left ECA: 9.1 VERTEBRALS (direction of flow): Right Vertebral: Antegrade Left Vertebral: Antegrade Rhythm: Normal Hyperechoic plaque with posterior shadowing is seen bilateral carotid bifurcations, right greater rina n left. Elevated velocities are obtained bilateral CCA, bilateral ICA, bilateral ECA. IMPRESSION: Bilateral plaque formation. 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 There is antegrade flow in the vertebral arteries. Criteria for Assigning % of Stenosis / Diameter reduction (Estimation based on the indirect measurements of the internal carotid artery velocities (ICA PSV). 1. Normal (no stenosis)=ICA PSV < 125 cm/s: ratio < 2.0: ICA EDV<40 cm/s. 2. Less than 50% stenosis=ICA PSV < 125 cm/s: ratio < 2.0: ICA EDV<40 cm/s. 3. 50 to 69% stenosis=ICA PSV of 125 to 230 cm/s: ration 2.0 ? 4.0: ICA EDV 40-100 cm/s. 4. Greater than 70% stenosis to near occlusion= ICA PSV > 230 cm/s: ratio > 4.0: ICA EDV > 100 cm/s. 5. Near occlusion= ICA PSV velocities may be low or undetectable: variable ratio and ICA EDV. 6. Total occlusion=unable to detect flow.
[2019-07-18] MEDS: ATORVASTATIN 80 MG TAB PO SCH (20:36)
[2019-07-18] MEDS: DOXAZOSIN 4 MG TAB PO SCH (22:31)
[2019-07-19] MEDS: PANTOPRAZOLE 40 MG TABLET PO SCH (05:06)
[2019-07-19] MEDS: amLODIPine 2.5 MG TAB PO SCH (05:06)
[2019-07-19 08:06] LABS: Cholesterol 109 mg/dL (<200); HDL Cholesterol 50 mg/dL (40-60); LDL Cholesterol,Calculated 49 mg/dL (0-99); Triglycerides 48 mg/dL (<150)
[2019-07-19] MEDS: DOXAZOSIN 4 MG TAB PO SCH ×2 (08:41→20:08)
[2019-07-19] MEDS: ATENOLOL 50 MG TAB PO SCH (08:41)
[2019-07-19] MEDS: LISINOPRIL 10 MG TAB PO SCH ×2 (08:41→20:08)
[2019-07-19] MEDS: ESCITALOPRAM 10 MG TAB PO SCH (08:41)
--- NOTE | 2019-07-19 11:43 | ECHOF ---
Referral Reason:Thrombus MEASUREMENTS -------- HEIGHT: 156.2 cm WEIGHT: 90.7 kg BP: 191/74 RVIDd: 2.9 cm (< 3.3) IVSd: 1.4 cm (0.6 - 1.1) LVIDd: 3.7 cm (3.9 - 5.3) LVPWd: 1.6 cm (0.6 - 1.1) IVSs: 2.0 cm LVIDs: 3.0 cm LVPWs: 2.0 cm LA Diam: 3.6 cm (2.7 - 3.8) LAESV Index (A-L): 39.86 ml/m Ao Diam: 3.4 cm (2.0 - 3.7) AV Cusp: 1.6 cm (1.5 - 2.6) MV EXCURSION: 12.396 mm (> 18.000) MV EF SLOPE: 36 mm/s (70 - 150) EPSS: 0.9 cm MV E Noel: 0.71 m/s MV DecT: 366 ms MV A Noel: 1.21 m/s MV E/A Ratio: 0.59 AV maxP.78 mmHg AV meanP.96 mmHg AR PHT: 539 ms RAP: 5.00 mmHg RVSP: 21.32 mmHg TAPSE: 21.91 mm FINDINGS -------- Sinus rhythm. This was a technically good study. The left ventricular size is normal. There is moderate concentric left ventricular hypertrophy. O verall left ventricular systolic function is normal with, an EF between 60 - 65 %. Grade I Diastoli c Dysfunction. The right ventricle is normal in size. LA is moderately dilated 34-39 ml/m2 The right atrium is normal in size. Interatrial and interventricular septum intact. There is moderate aortic valve sclerosis. There is mild aortic regurgitation. There is mild aorti c stenosis present. The mitral valve leaflets are mildly thickened. Mild mitral annular calcification present. Mild m itral regurgitation is present. Mild tricuspid regurgitation present. Right ventricular systolic pressure is normal at < 35 mmHg. There is no pulmonic regurgitation present. The aortic root size is normal. IVC Not well visulized. There is no pericardial effusion. CONCLUSIONS -------- 1. Sinus rhythm. 2. This was a technically good study. 3. The left ventricular size is normal. 4. There is moderate concentric left ventricular hypertrophy. 5. Overall left ventricular systolic function is normal with, an EF between 60 - 65 %. 6. Grade I Diastolic Dysfunction. 7. The right ventricle is normal in size. 8. LA is moderately dilated 34-39 ml/m2 9. The right atrium is normal in size. 10. Interatrial and interventricular septum intact. 11. There is moderate aortic valve sclerosis. 12. There is mild aortic regurgitation. 13. There is mild aortic stenosis present. 14. The mitral valve leaflets are mildly thickened. 15. Mild mitral annular calcification present. 16. Mild mitral regurgitation is present. 17. Mild tricuspid regurgitation present. 18. Right ventricular systolic pressure is normal at < 35 mmHg. 19. There is no pulmonic regurgitation present. 20. The aortic root size is normal. 21. IVC Not well visulized. 22. There is no pericardial effusion. DIRECT CARE SPECIALIST: CARLINE Quezada
--- NOTE | 2019-07-19 12:45 | P.CNNES ---
History of Present Illness Consult date: 07/19/19 Requesting physician: Henry Rolle Reason for Consult: TIA History of Present Illness: Patient is a 88-year-old male with history of hypertension, states that yesterday at around 2:30 PM he and his are getting ready to go to lunch when he developed acute onset of weakness of his legs, right more than left, and slurring of speech. There was no facial droop, or focal weakness involving the upper extremities. Patient's got concerned, and brought him to the hospital. Patient states that his symptoms resolved within 45 minutes or less. When patient arrived, his blood pressure was 159/70, with pulse rate of 51. His blood pressure did go up to 200/81 subsequently, although the maximum blood pressure recorded so far has been 233/96. At present patient feels he is back to baseline, offers no complaints. Patient states that he has been compliant with aspirin. He did not miss any dose. Patient states that yesterday morning, 4-5 hours prior to this TIA, he did drop couple days of pills on the floor and took 4 of them, not sure if he took double dose of any medication, as all of them look like. He states that he did take the aspirin, as it is larger in size and different from other pills. I don't believe this episode was medication side effect, as it occurred several hours after taking medications, and the symptoms resolved within 45 minutes, typical of TIA rather than medication side effect, which would have lasted much longer. Patient has history of TIA on 09/30/2017, when he was in the hospital for back pain and developed focal symptoms with left facial weakness and numbness of left arm. Patient had an MRI of the brain, which did not reveal any acute stroke at that time. Patient had been on aspirin 325 mg, which was continued. Patient has been on aspirin for a long time. Patient has history of left CEA about 10 years ago. He follows up with Dr. Tran. Patient does take Lipitor 40 mg daily. Patient has history of hypertension, denies diabetes or stool tobacco use. Patient's carotid Doppler showed 50-70% stenosis in both common carotid arteries and the internal carotid arteries. Antegrade flow in both vertebral arteries. Chest x-ray showed no acute process. CT head showed age-related atrophic and chronic small vessel ischemic change without acute intracranial process. Patient had a normal brain MRI on 10/01/2017 after his previous TIA. It showed white matter demyelination change likely due to chronic small vessel ischemia. Review of Systems He has chronic back issues. Otherwise completely unremarkable. Denies headache problems with vision hoarseness or throw dysphagia. Denies abdominal pain nausea vomiting diarrhea chest pain shortness of breath. Past Medical History Past Medical History: Coronary Artery Disease (CAD), CVA/TIA, Eye Disorder, GERD/Reflux, Hyperlipidemia, Hypertension, Osteoarthritis (OA), Prostate Disorder, Sleep Apnea/CPAP/BIPAP Additional Past Medical History / Comment(s): TIFFANIE with O2 at 2L/NC at HS, R eye macular degeneration with injections, 09/2017 TIAx 2, hiatal hernia, constipation, migraines, BPH, urinary retention, diverticulosis, benign colon polyps, hypoglycemia. History of Any Multi-Drug Resistant Organisms: None Reported Past Surgical History: Appendectomy, Back Surgery, Heart Catheterization With Stent Additional Past Surgical History / Comment(s): L caratid endartectomy, PCI with stents, L4-L5 laminectomy/cage, colonoscopies/benign polypectomy, sinus surgery for polyps, pilonidal cyst surgery, abdominal abscess surgery, cystoscopy, bilateral cataract removals with lens implants. Past Anesthesia/Blood Transfusion Reactions: No Reported Reaction Date of Last Stent Placement:: 2000 Past Psychological History: No Psychological Hx Reported Additional Psychological History / Comment(s): Pt resides with his spouse. He uses a cane. He drives. He has home O2 for HS only. Smoking Status: Former smoker Past Alcohol Use History: None Reported Additional Past Alcohol Use History / Comment(s): quit smoking 1963,started smoking 1944 Past Drug Use History: None Reported - Past Family History Mother Family Medical History: Dementia, Myocardial Infarction ([place]) Additional Family Medical History / Comment(s): Mother of dementia at the age of 73yrs. Father Family Medical History: Myocardial Infarction ([place]) Additional Family Medical History / Comment(s): Father had a IA at the age of 73 yrs. Sister(s) Family Medical History: Cancer, Myocardial Infarction ([place]) Additional Family Medical History / Comment(s): 2 sisters lung and kidney ca,1 sister [place] Brother(s) Family Medical History: Cancer, Myocardial Infarction ([place]) Additional Family Medical History / Comment(s): 1 brother with lung cancer, 1 brother with colon cancer, 1 brother with bone cancer, 1 brother had a IA. Medications and Allergies Home Medications Medication Instructions Recorded Confirmed Type Aspirin 325 mg PO DAILY 04/26/14 07/18/19 History Omeprazole [PriLOSEC] 20 mg PO DAILY 04/26/14 07/18/19 History Sertraline HCl [Zoloft] 100 mg PO DAILY 04/26/14 07/18/19 History Terazosin [Hytrin] 5 mg PO BID 04/26/14 07/18/19 History Atenolol [Tenormin] 50 mg PO DAILY 09/30/17 07/18/19 History Atorvastatin [Lipitor] 40 mg PO HS #30 tablet 10/01/17 07/18/19 Rx Cyanocobalamin (Vitamin B-12) 5,000 mcg PO DAILY 07/18/19 07/18/19 History [Vitamin B-12] Escitalopram [Lexapro] 10 mg PO DAILY 07/18/19 07/18/19 History Nitroglycerin Sl Tabs [Nitrostat] 0.4 mg SUBLINGUAL Q5M PRN 07/18/19 07/18/19 History amLODIPine [Norvasc] 2.5 mg PO DAILY 07/18/19 07/18/19 History Allergies Allergy/AdvReac Type Severity Reaction Status Date / Time MSG AdvReac BLURRED Uncoded 07/18/19 17:09 VISION, HEADACHE Physical Examination - Vital Signs Vital Signs: Vital Signs Temp Pulse Pulse Resp BP BP Pulse Ox 07/19/19 11:00 51 L 16 137/64 96 07/19/19 08:00 97.4 F L 55 L 18 188/73 95 07/19/19 06:43 58 L 191/74 94 L 07/19/19 03:32 97.8 F 57 L 18 191/73 97 07/18/19 23:39 57 L 18 173/66 96 07/18/19 22:06 150/69 07/18/19 20:09 54 L 16 196/73 99 07/18/19 19:00 51 L 13 181/86 99 07/18/19 18:30 53 L 19 169/63 100 07/18/19 18:00 56 L 18 189/71 99 07/18/19 17:56 189/71 07/18/19 17:30 51 L 12 233/96 100 07/18/19 17:00 50 L 10 L 219/93 100 07/18/19 16:50 49 L 16 219/93 100 07/18/19 16:40 50 L 11 L 232/93 100 07/18/19 16:30 49 L 20 221/89 07/18/19 16:20 50 L 14 221/89 100 07/18/19 16:10 222/78 07/18/19 16:00 49 L 14 205/86 100 07/18/19 15:50 49 L 14 205/86 100 07/18/19 15:40 50 L 20 181/102 99 07/18/19 15:30 97.8 F 51 L 20 200/81 98 07/18/19 15:20 52 L 12 200/81 95 07/18/19 15:12 23 07/18/19 15:03 97.8 F 51 L 20 159/70 98 Intake and Output 07/18/19 07/19/19 07/19/19 22:59 06:59 14:59 Output Total 400 Balance -400 Output: Urine 400 Other: Voiding Method Urinal Urinal Urinal # Voids 150 Weight 90.718 kg On examination patient is an elderly male, in no distress. Patient is alert and awake oriented to time place and person. Speech and language functions are normal. Attention and concentration fund of knowledge is adequate. On cranial examination pupils are round and reactive to light, visual mello are full on confrontation, extraocular muscles are intact with no nystagmus. His pupils are surgical from previous surgery. Face is symmetric and tongue protrudes the midline. Palatal elevation and sensation normal. On muscle strength testing there is no pronator drift and the strength is normal in arms and legs distally and proximally. Reflexes are 1+, and plantar is downgoi ng on the right whereas possible up on the left. Sensory touch is equal with no neglect on double simultaneous stimulation. No ataxia for exbcmv-[id number] or yoyz-rs-wawr testing. Tone and bulk of muscles normal. Gait deferred. S1 and S2 was audible. Abdominal is soft nontender. No peripheral edema. Results Patient's hemoglobin A1c 5.5 on 01/11/2019. His total cholesterol is 109, LDL 49, HDL 50 and triglycerides 48 on 07/19/2019. - Laboratory Findings CBC and BMP: 07/18/19 15:38 07/18/19 15:38 Abnormal Lab Findings: Abnormal Labs 07/18/19 07/18/19 15:38 15:38 RBC 3.59 L Hgb 11.7 L Hct 33.5 L Plt Count 131 L BUN 23 H Assessment and Plan Assessment: * 88-year-old male admitted with possible TIA manifesting with slurred speech, and right leg > left leg weakness and difficulty with walking. Symptoms resolved within 45 minutes. At present his NIH stroke scale is 0. * Hypertension * Hyperlipidemia, well controlled * Previous history of TIA on 09/30/2017 * History of left carotid endarterectomy about 10 years ago. Plan: * Patient had a TIA and his carotid Doppler revealed moderate stenosis of bilateral ICA. We will check CTA of head and neck to evaluate for the degree of vascular stenosis, and rule out intracranial atherosclerotic disease. * Patient will be continued on Lipitor 40 mg and his lipids are well controlled. * We will consider switching from aspirin to Plavix 75 mg, as patient had this second TIA since 2018. * Permissible hypertension for 24-48 hours. * 2-D echo showed moderate concentric LVH, EF 60-65%. Grade 1 diastolic dysfunction. Left atrium is moderately dilated. Interatrial and interventricular septum intact. There is moderate aortic valve sclerosis. Mild aortic regurgitation.
--- NOTE | 2019-07-19 14:25 | CT ---
EXAMINATION TYPE: CT angio head neck DATE OF EXAM: 07/19/2019 HISTORY: TIA, Abnormal carotid doppler, possible stenosis COMPARISON: Carotid ultrasound and head CT from yesterday CT DLP: 1708.1 mGycm. Automated Exposure Control for Dose Reduction was Utilized. TECHNIQUE: CTA scan of the head and neck are performed without and with IV Contrast, patient injecte d with 65 ml mL of Isovue 370, axial images are obtained, coronal and sagittal reformatted images are reviewed. Three-D reconstructed images are created on an independent workstation and reviewed. Nonco ntrast head CT. FINDINGS: Noncontrast head CT redemonstrates no acute intracranial hemorrhage or midline shift. Persi stent diffuse ventricular and sulcal prominence. Persistent low attenuation in deep and periventricul ar white matter bilaterally. The calvarium is intact. Carotid/Vascular Structures: There is bovine type arch which is normal variant. Left vertebral artery shows direct origin from the aortic arch. Right common carotid artery shows normal origin from the r ight brachiocephalic artery. There is focus of noncalcified plaque midsegment causing mild stenosis a nteriorly axial image 44. There is moderate to severe mixed plaque phenomenally calcified right carot id bulb extending into proximal internal carotid artery with stenosis felt under 50% present. Right e xternal carotid artery is patent with stenosis present but measured under 50%. There is mild plaque along course of the left common carotid artery. There is no significant focal pl aque at left carotid bulb with patent internal and external carotid arteries showing no significant s tenosis. There is dominant right vertebral artery. Vertebral arteries are patent to basilar junction. There is no significant focal stenosis or aneurysmal change in the posterior circulation. There are hypoplast ic or nonvisualized bilateral posterior communicating arteries. This patent anterior communicating ar renard. There is no significant focal stenosis or aneurysmal change. There is mild/moderate calcified p laque supraclinoid segments seen bilaterally. Other: Multilevel spurring in the cervicothoracic spine is present. There is slight scoliotic curvatu re on the coronal images. IMPRESSION: 1. No hemodynamically significant stenosis in either internal carotid artery. There is more prominent plaque noted right carotid bulb on CTA. Increased peak systolic velocity bilateral common carotid ar teries raises concern for underlying uncontrolled hypertension. Correlate clinically. 2. No significant focal stenosis or aneurysmal change at the level of [place].
[2019-07-19] MEDS: CLOPIDOGREL 75 MG TAB PO SCH (15:29)
--- NOTE | 2019-07-19 16:44 | P.HPIM ---
History of Present Illness H&P Date: 07/19/19 Chief Complaint: Slurred speech, weakness of the legs This is an 88 years old gentleman patient of Dr. Day with past medical history of coronary artery disease status post 4 stent placement in 2000, hyperlipidemia, hypertension, obstructive sleep apnea, TIA in September 2017 with dysarthria, comes into the ER with complaints slurred speech, as he walked over to his car. As soon as he was seated, patient is difficulty in placing both legs mainly in the right side more than the left. This occurred like around 2:30 in the afternoon., He was unable to get out of his truck, and subsequently help came to assist him out of his truck. Patient denies any other focal d eficits to include no diplopia, headache vertigo, however he occasionally gets lightheaded. Patient cannot relate to any upper extremity weakness, this lasted for few minutes, approximately 30 minutes. Patient did not take any medications for this, and was last seen by the PCP on this past 1 week without any medication changes. Patient denies any chest pain no palpitations, no severe headache, no fever no chills In the emergency room, he was evaluated by the ER physician, and was noted to gayle ve an NIH score of 0, consults were made with neurology and was subsequently admitted. Echocardiogram carotid Dopplers, EKG showing normal sinus rhythm first degree AV block heart rate 54, LVH with repolarization CT of the brain shows age-related atrophy with small vessel ischemic change which is chronic, no acute intracranial processes seen chest x-ray was unremarkable for any acute pulmonary disease, Review of Systems Constitutional: Reports as per HPI, Denies anorexia, Denies chills, Denies chronic headaches, Denies chronic pain, Denies daytime sleepiness, Denies fatigue, Denies fever, Denies lethargy, Denies malaise, Denies night sweats, Denies poor appetite, Denies sweats, Denies weakness, Denies weight gain, Denies weight loss Ears, nose, mouth and throat: Reports as per HPI, Denies ant. neck pain, Denies bleeding gums, Denies dental pain, Denies dysphagia, Denies epistaxis, Denies headache, Denies hoarseness, Denies mouth pain, Denies nasal congestion, Denies nasal discharge, Denies neck fullness/pressure, Denies neck lump, Denies nose pain, Denies odynophagia, Denies post-nasal drip, Denies sinus pain, Denies sinus pressure, Denies swelling in mouth, Denies swelling in throat, Denies sore throat, Denies vertigo, Denies voice changes Cardiovascular: Reports as per HPI, Denies chest pain, Denies claudication, Denies decreased exercise tolerance, Denies dyspnea on exertion, Denies edema, Denies high blood pressure, Denies irregular heart beat, Denies leg edema, Denies lightheadedness, Denies orthopnea, Denies palpitations, Denies paroxysmal nocturnal dyspnea, Denies phlebitis, Denies rapid heart beat, Denies shortness of breath, Denies syncope Respiratory: Reports as per HPI, Denies congestion, Denies cough, Denies cough with sputum, Denies dyspnea, Denies excessive sputum, Denies hemoptysis, Denies home oxygen, Denies pain, Denies pain on inspiration, Denies pleurisy, Denies respiratory infections, Denies sleep apnea, Denies snoring, Denies wheezing Gastrointestinal: Reports as per HPI, Denies abdominal pain, Denies belching, Denies bloating, Denies BRBPR, Denies change in bowel habits, Denies coffee ground emesis, Denies constipation, Denies diarrhea, Denies dyspepsia, Denies early satiety, Denies excessive gas, Denies heartburn, Denies hematemesis, Denies hematochezia, Denies indigestion, Denies jaundice, Denies lactose intolerance, Denies loss of appetite, Denies melena, Denies nausea, Denies vomiting Genitourinary: Reports as per HPI, Denies decreased libido, Denies difficulties fathering child, Denies discharge, Denies dysuria, Denies erectile dysfunction, Denies flank pain, Denies genital pain, Denies genital sores, Denies hematuria, Denies impotence, Denies incontinence, Denies kidney stones, Denies nocturia, Denies polyuria, Denies testicular lump, Denies testicular pain, Denies urinary frequency, Denies urinary hesitancy, Denies urinary retention Musculoskeletal: Reports as per HPI, Reports gait dysfunction, Reports muscle weakness Integumentary: Reports as per HPI Neurological: Reports as per HPI, Reports motor disturbance Psychiatric: Reports as per HPI, Denies anhedonia, Denies anxiety, Denies anxiety attacks, Denies change in appetite, Denies change in libido, Denies change in sleep habits, Denies confusion, Denies depression, Denies difficulty concentrating, Denies disorientation, Denies hallucinations, Denies hopelessness, Denies hypersomnia, Denies insomnia, Denies irritability, Denies memory loss, Denies mood swings, Denies paranoia, Denies sadness/tearfulness, Denies sleep disturbances, Denies suicidal ideation Endocrine: Reports as per HPI Hematologic/Lymphatic: Reports as per HPI Allergic/Immunologic: Reports as per HPI, Denies allergic rhinitis, Denies anaphylaxis, Denies angioedema, Denies gluten intolerance, Denies persistent infections, Denies seasonal allergies, Denies urticaria, Denies wheezing Past Medical History Past Medical History: Coronary Artery Disease (CAD), CVA/TIA, Eye Disorder, GERD/Reflux, Hyperlipidemia, Hypertension, Osteoarthritis (OA), Prostate Disorder, Sleep Apnea/CPAP/BIPAP Additional Past Medical History / Comment(s): TIFFANIE with O2 at 2L/NC at HS, R eye macular degeneration with injections, 09/2017 TIAx 2, hiatal hernia, constipation, migraines, BPH, urinary retention, diverticulosis, benign colon polyps, hypoglycemia. History of Any Multi-Drug Resistant Organisms: None Reported Past Surgical History: Appendectomy, Back Surgery, Heart Catheterization With Stent Additional Past Surgical History / Comment(s): L caratid endartectomy, PCI with stents, L4-L5 laminectomy/cage, colonoscopies/benign polypectomy, sinus surgery for polyps, pilonidal cyst surgery, abdominal abscess surgery, cystoscopy, bilateral cataract removals with lens implants. Past Anesthesia/Blood Transfusion Reactions: No Reported Reaction Date of Last Stent Placement:: 2000 Past Psychological History: No Psychological Hx Reported Additional Psychological History / Comment(s): Pt resides with his spouse. He uses a cane. He drives. He has home O2 for HS only. Smoking Status: Former smoker Past Alcohol Use History: None Reported Additional Past Alcohol Use History / Comment(s): quit smoking 1963,started smoking 1944 Past Drug Use History: None Reported - Past Family History Mother Family Medical History: Dementia, Myocardial Infarction ([place]) Additional Family Medical History / Comment(s): Mother of dementia at the age of 73yrs. Father Family Medical History: Myocardial Infarction ([place]) Additional Family Medical History / Comment(s): Father had a [place] at the age of 73 yrs. Sister(s) Family Medical History: Cancer, Myocardial Infarction ([place]) Additional Family Medical History / Comment(s): 2 sisters lung and kidney ca,1 sister [place] Brother(s) Family Medical History: Cancer, Myocardial Infarction ([place]) Additional Family Medical History / Comment(s): 1 brother with lung cancer, 1 brother with colon cancer, 1 brother with bone cancer, 1 brother had a [place]. Medications and Allergies Home Medications Medication Instructions Recorded Confirmed Type Aspirin 325 mg PO DAILY 04/26/14 07/18/19 History Omeprazole [PriLOSEC] 20 mg PO DAILY 04/26/14 07/18/19 History Sertraline HCl [Zoloft] 100 mg PO DAILY 04/26/14 07/18/19 History Terazosin [Hytrin] 5 mg PO BID 04/26/14 07/18/19 History Atenolol [Tenormin] 50 mg PO DAILY 09/30/17 07/18/19 History Atorvastatin [Lipitor] 40 mg PO HS #30 tablet 10/01/17 07/18/19 Rx Cyanocobalamin (Vitamin B-12) 5,000 mcg PO DAILY 07/18/19 07/18/19 History [Vitamin B-12] Escitalopram [Lexapro] 10 mg PO DAILY 07/18/19 07/18/19 History Nitroglycerin Sl Tabs [Nitrostat] 0.4 mg SUBLINGUAL Q5M PRN 07/18/19 07/18/19 History amLODIPine [Norvasc] 2.5 mg PO DAILY 07/18/19 07/18/19 History Allergies Allergy/AdvReac Type Severity Reaction Status Date / Time MSG AdvReac BLURRED Uncoded 07/18/19 17:09 VISION, HEADACHE Physical Exam Vitals: Vital Signs Temp Pulse Pulse Resp BP BP Pulse Ox 07/19/19 11:00 51 L 16 137/64 96 07/19/19 08:00 97.4 F L 55 L 18 188/73 95 07/19/19 06:43 58 L 191/74 94 L 07/19/19 03:32 97.8 F 57 L 18 191/73 97 07/18/19 23:39 57 L 18 173/66 96 07/18/19 22:06 150/69 07/18/19 20:09 54 L 16 196/73 99 07/18/19 19:00 51 L 13 181/86 99 07/18/19 18:30 53 L 19 169/63 100 07/18/19 18:00 56 L 18 189/71 99 07/18/19 17:56 189/71 07/18/19 17:30 51 L 12 233/96 100 07/18/19 17:00 50 L 10 L 219/93 100 07/18/19 16:50 49 L 16 219/93 100 07/18/19 16:40 50 L 11 L 232/93 100 07/18/19 16:30 49 L 20 221/89 07/18/19 16:20 50 L 14 221/89 100 07/18/19 16:10 222/78 07/18/19 16:00 49 L 14 205/86 100 07/18/19 15:50 49 L 14 205/86 100 07/18/19 15:40 50 L 20 181/102 99 07/18/19 15:30 97.8 F 51 L 20 200/81 98 07/18/19 15:20 52 L 12 200/81 95 07/18/19 15:12 23 07/18/19 15:03 97.8 F 51 L 20 159/70 98 Intake and Output 07/18/19 07/19/19 07/19/19 22:59 06:59 14:59 Output Total 400 Balance -400 Output: Urine 400 Other: Voiding Method Urinal Urinal Urinal # Voids 150 Weight 90.718 kg - Constitutional General appearance: average body habitus, cooperative, no acute distress - EENT Eyes: anicteric sclerae, PERRLA, dentition normal, normal appearance ENT: NA/AT, normal oropharynx - Respiratory Respiratory: bilateral: CTA, negative: diminished, dullness, rales - Cardiovascular Rhythm: regular Heart sounds: normal: S1, S2 - Gastrointestinal General gastrointestinal: normal bowel sounds, soft - Integumentary Integumentary: normal turgor - Neurologic Neurologic: CNII-XII intact - Musculoskeletal Musculoskeletal: gait normal, strength equal bilaterally - Psychiatric Psychiatric: A&O x's 3, appropriate affect, intact judgment & insight Results CBC & Chem 7: 07/18/19 15:38 07/18/19 15:38 Labs: Abnormal Lab Results - Last 24 Hours (Table) 07/18/19 07/18/19 Range/Units 15:38 15:38 RBC 3.59 L (4.30-5.90) m/uL Hgb 11.7 L (13.0-17.5) gm/dL Hct 33.5 L (39.0-53.0) % Plt Count 131 L (150-450) k/uL BUN 23 H (9-20) mg/dL Thrombosis Risk Factor Assmnt - DVT/VTE Prophylaxis DVT/VTE Prophylaxis: Low risk, early ambulation encouraged - Choose All That Apply Any of the Below Risk Factors Present?: Yes Other Risk Factors: Yes Each Risk Factor Represents 3 Points: Age 75 years or older Thrombosis Risk Factor Assessment Total Risk Factor Score: 3 Thrombosis Risk Factor Assessment Level: Moderate Risk Assessment and Plan Plan: 1. Suspected TIA Dysarthria, along with right lower extremity weakness more than the left lower extremity weakness, TIA suspected, symptoms have resolved upon ER admission, and we've evaluated the patient and emergency room. Length of symptoms lasted for approximately 45 minutes. NIH score on admission is 0, not a candidate, patient will be given Plavix, the recommendation from neurology, aspirin is discontinued. Continue on statins, CTA neck was requested 2. Hyperlipidemia, LDL 49, continue Lipitor 40 mg daily, 3. Hypertension, on Hytrin 5 mg twice a day, amlodipine 2.5 mg, home meds are resumed, atenolol 50 mg daily 4. 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 history of coronary artery disease status post for stent placed in 2000. Continue aspirin 325 mg, Lipitor 40 mg, atenolol 50 mg by mouth daily. 7. history of TIA in September 2017 with dysarthria continue aspirin and Lipitor 8 hypertension continue amlodipine, atenolol 9 CODE STATUS full code 10 DVT prophylaxis with heparin every 12 11 GI prophylaxis with Prilosec 20 mg daily
[2019-07-19] MEDS ORDERED: ASPIRIN 325 MG TAB PO SCH (18:00)
[2019-07-19] MEDS: ATORVASTATIN 80 MG TAB PO SCH (20:09)
[2019-07-20] MEDS: PANTOPRAZOLE 40 MG TABLET PO SCH (06:52)
[2019-07-20] MEDS: ESCITALOPRAM 10 MG TAB PO SCH (08:11)
[2019-07-20] MEDS: LISINOPRIL 10 MG TAB PO SCH (08:11)
[2019-07-20] MEDS: CLOPIDOGREL 75 MG TAB PO SCH (08:11)
[2019-07-20] MEDS: ATENOLOL 50 MG TAB PO SCH (08:11)
[2019-07-20] MEDS: amLODIPine 2.5 MG TAB PO SCH (08:11)
[2019-07-20] MEDS: DOXAZOSIN 4 MG TAB PO SCH (08:11)
[2019-07-20 08:15] VITALS: RESP 16
[2019-07-20 11:16] VITALS: BP 168/84; PULSE 51; TEMP 98.2
--- NOTE | 2019-07-20 11:29 | P.PN ---
Subjective Progress Note Date: 07/20/19 Patient offers no new complaints. He is laying comfortably in the bed. No new focal symptoms. His symptoms have mostly resolved. Objective - Vital Signs Vital signs: Vital Signs Temp 98.2 F 07/20/19 11:13 Pulse 51 L 07/20/19 11:13 Resp 16 07/20/19 11:13 BP 168/84 07/20/19 11:13 Pulse Ox 97 07/20/19 11:13 Intake & Output 07/19/19 07/20/19 07/20/19 18:59 06:59 18:59 Intake Total 240 250 240 Output Total 600 100 Balance -360 150 240 Intake: IV 10 0.9 10 Oral 240 240 240 Output: Urine 600 100 Other: Voiding Method Urinal Urinal Urinal # Voids 3 1 - Exam Mental status, speech and language functions are normal. Cranial nerves normal. Muscle strength normal. No ataxia. Sensations intact. Coordination intact. - Labs CBC & Chem 7: 07/18/19 15:38 07/18/19 15:38 Assessment and Plan Assessment: * 88-year-old male admitted with possible TIA manifesting with slurred speech, and right leg > left leg weakness and difficulty with walking. Symptoms resolved within 45 minutes. At present his NIH stroke scale is 0. * Hypertension * Hyperlipidemia, well controlled * Previous history of TIA on 09/30/2017 * History of left carotid endarterectomy about 10 years ago. Plan: * Patient had a TIA and his neurological symptoms have resolved. Patient's CTA of head and neck showed no significant stenosis. There is more prominent plaque noted in the right carotid bulb on CTA. [place] showed no significant stenosis or aneurysm. * Patient will be continued on Lipitor 40 mg and his lipids are well controlled. * Patient has been switched from aspirin to Plavix 75 mg, as patient had this second TIA since 2018. Patient is tolerating Plavix well. * 2-D echo showed moderate concentric LVH, EF 60-65%. Grade 1 diastolic dysfunction. Left atrium is moderately dilated. Interatrial and interventricular septum intact. There is moderate aortic valve sclerosis. Mild aortic regurgitation. * Neurologically clear for discharge with the above recommendations.
[2019-07-20] MEDS ORDERED: LISINOPRIL 10 MG TAB PO STA (12:04)
--- NOTE | 2019-07-20 15:02 | P.DS ---
Providers Date of admission: 07/18/19 17:58 Expected date of discharge: 07/20/19 Attending physician: Lakia Solomon Consults: 07/18/19 17:59 Consult Physician Routine Consulting Provider: Rafat Rodriguez Consult Reason/Comments: TIA Do you want consulting provider notified?: Yes [facility] Course: This is an 88 years old gentleman patient of Dr. Day with past medical history of coronary artery disease status post 4 stent placement in 2000, hyperlipidemia, hypertension, obstructive sleep apnea, TIA in September 2017 with dysarthria, comes into the ER with complaints slurred speech, as he walked over to his car. As soon as he was seated, patient is difficulty in placing both legs mainly in the right side more than the left. This occurred like around 2:30 in the afternoon., He was unable to get out of his truck, and subsequently help came to assist him out of his truck. Patient denies any other focal deficits to include no diplopia, headache vertigo, however he occasionally gets lightheaded. Patient cannot relate to any upper extremity weakness, this lasted for few minutes, approximately 30 minutes. Patient did not take any medications for this, and was last seen by the PCP on this past 1 week without any medication changes. Patient denies any chest pain no palpitations, no severe headache, no fever no chills In the emergency room, he was evaluated by the ER physician, and was noted to have an NIH score of 0, consults were made with neurology and was subsequently admitted. Echocardiogram carotid Dopplers, EKG showing normal sinus rhythm first degree AV block heart rate 54, LVH with repolarization CT of the brain shows age-related atrophy with small vessel ischemic change which is chronic, no acute intracranial processes seen chest x-ray was unremarkable for any acute pulmonary disease, 07/20: Echocardiogram reveals EF of 60-65%, moderate concentric left ventricular hypertrophy, grade 1 diastolic dysfunction, moderate aortic valve sclerosis, mild aortic regurgitation, mild aortic stenosis, mild wedge regurgitation, mild tricuspid regurgitation. CT angios showed no hemodynamically significant stenos is in the internal carotid arteries bilaterally, no significant stenosis or aneurysmal change at the level [place]. Patient has been afebrile, heart rate 55, blood pressure 170/69, pulse ox 98% on 2 L nasal cannula. The patient denies any new complaints. He is noted to have increased blood pressure for which lisinopril has been started on this admission we will increase it to 20 g twice daily. Patient will be discharged home today in stable condition. Discharge diagnoses: 1. Suspected TIA with slurred speech and right leg weakness difficulty walking, resolved within 45 minutes 2. Hyperlipidemia 3. Hypertension 4. Dysthymia 5. 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 history of coronary artery disease status post for stent placed in 2000. 7. history of TIA in September 2017 with dysarthria 8. Hypertension Discharge plan: Home Impression and plan of care have been directed as dictated by the signing physician. Myrtle Millan nurse practitioner acting as scribe for signing physician. Patient Condition at Discharge: Good Plan - Discharge Summary New Discharge Prescriptions: New Clopidogrel [Plavix] 75 mg PO DAILY #30 tab Lisinopril 20 mg PO BID #60 tab Continue Terazosin [Hytrin] 5 mg PO BID Sertraline HCl [Zoloft] 100 mg PO DAILY Omeprazole [PriLOSEC] 20 mg PO DAILY Atenolol [Tenormin] 50 mg PO DAILY Atorvastatin [Lipitor] 40 mg PO HS #30 tablet amLODIPine [Norvasc] 2.5 mg PO DAILY Cyanocobalamin (Vitamin B-12) [Vitamin B-12] 5,000 mcg PO DAILY Escitalopram [Lexapro] 10 mg PO DAILY Nitroglycerin Sl Tabs [Nitrostat] 0.4 mg SUBLINGUAL Q5M PRN PRN Reason: Chest Pain Discontinued Aspirin 325 mg PO DAILY Discharge Medication List Omeprazole [PriLOSEC] 20 mg PO DAILY 04/26/14 [History] Sertraline HCl [Zoloft] 100 mg PO DAILY 04/26/14 [History] Terazosin [Hytrin] 5 mg PO BID 04/26/14 [History] Atenolol [Tenormin] 50 mg PO DAILY 09/30/17 [History] Atorvastatin [Lipitor] 40 mg PO HS #30 tablet 10/01/17 [Rx] Cyanocobalamin (Vitamin B-12) [Vitamin B-12] 5,000 mcg PO DAILY 07/18/19 [History] Escitalopram [Lexapro] 10 mg PO DAILY 01/14/20 [History] Nitroglycerin Sl Tabs [Nitrostat] 0.4 mg SUBLINGUAL Q5M PRN 07/18/19 [History] amLODIPine [Norvasc] 2.5 mg PO DAILY 07/18/19 [History] Clopidogrel [Plavix] 75 mg PO DAILY #30 tab 07/20/19 [Rx] Lisinopril 20 mg PO BID #60 tab 07/20/19 [Rx] Follow up Appointment(s)/Referral(s): Jefferson Day DO [Primary Care Provider] - 1-2 days (Office will call you with a follow up appointment. Please request neurology referral for follow up from the primary doc. ) Patient Instructions/Handouts: Transient Ischemic Attack (DC)
[2019-07-20] MEDS ORDERED: LISINOPRIL 20 MG TAB PO SCH (21:00)
== END 2019-07-20 15:00 | disposition home or self-care (01) ==
LOC: EC 15:01 → 3SCARD 17:58
PROVIDERS: ADMIT Family Medicine; ATTEND Family Medicine
DX: R47.81 Slurred speech (principal); R53.1 Weakness; R26.2 Difficulty in walking, not elsewhere classified; E78.5 Hyperlipidemia, unspecified; I10 Essential (primary) hypertension; F34.1 Dysthymic disorder; R59.0 Localized enlarged lymph nodes; I25.10 Atherosclerotic heart disease of native coronary artery without angina pectoris; Z95.5 Presence of coronary angioplasty implant and graft; I69.822 Dysarthria following other cerebrovascular disease; H35.30 Unspecified macular degeneration; K21.9 Gastro-esophageal reflux disease without esophagitis; N40.1 Benign prostatic hyperplasia with lower urinary tract symptoms; R33.8 Other retention of urine; G47.30 Sleep apnea, unspecified; G47.33 Obstructive sleep apnea (adult) (pediatric); K44.9 Diaphragmatic hernia without obstruction or gangrene; G43.909 Migraine, unspecified, not intractable, without status migrainosus; K57.90 Diverticulosis of intestine, part unspecified, without perforation or abscess without bleeding; I44.0 Atrioventricular block, first degree; G31.9 Degenerative disease of nervous system, unspecified; I67.82 Cerebral ischemia; I65.23 Occlusion and stenosis of bilateral carotid arteries; R93.1 Abnormal findings on diagnostic imaging of heart and coronary circulation; I08.3 Combined rheumatic disorders of mitral, aortic and tricuspid valves; Z79.82 Long term (current) use of aspirin; Z79.899 Other long term (current) drug therapy; Z91.02 Food additives allergy status; Z87.19 Personal history of other diseases of the digestive system; Z86.010 Personal history of colon polyps; Z90.49 Acquired absence of other specified parts of digestive tract; Z98.890 Other specified postprocedural states; Z87.2 Personal history of diseases of the skin and subcutaneous tissue; Z98.42 Cataract extraction status, left eye; Z98.41 Cataract extraction status, right eye; Z96.1 Presence of intraocular lens; Z87.891 Personal history of nicotine dependence; Z82.49 Family history of ischemic heart disease and other diseases of the circulatory system; Z81.8 Family history of other mental and behavioral disorders; Z80.1 Family history of malignant neoplasm of trachea, bronchus and lung; Z80.51 Family history of malignant neoplasm of kidney; Z80.0 Family history of malignant neoplasm of digestive organs; Z80.8 Family history of malignant neoplasm of other organs or systems
CPT/HCPCS: 96361; 96374; 99285; 36415; 94760; 93005; 93306; 97161; 97165; 80061; 80053; 84484; 85025; 85610; 85730; 71046; 93880; 70496; 70450; 70498; G0378 ×3; J0360; Q9967

== ENCOUNTER 2019-08-15 11:52 | Emergency (ER) | payer MEDICARE, OTHER ==
[2019-08-15 11:58] VITALS: RESP 20
[2019-08-15] MEDS ORDERED: SODIUM CHLORIDE 0.9% 500 ML 500 ML IV ONE (12:34)
[2019-08-15] MEDS ORDERED: ACETAMINOPHEN TAB 325 MG TAB PO STA (12:35)
--- NOTE | 2019-08-15 12:42 | ED ---
URI HPI - General Chief Complaint: Upper Respiratory Infection Stated Complaint: Coughing/ worry about him Time Seen by Provider: 08/15/19 12:06 Source: patient, family Mode of arrival: wheelchair Limitations: physical limitation - History of Present Illness Initial Comments: 88yo male with HTN, CAD, HLD presenting to the ER for cough x 2 days. Patient states he has had a cough for the past 2 days. He states that it sounds "wet". Family was concerned of pneumonia and that is why they present to the emergency department for further evaluation. Patient denies any known fever or chills. Denies any difficulty breathing hemoptysis chest pain or pain or shortness of breath with exertion. Patient denies any leg swelling, nausea vomiting or abd ominal pain. Denies recent hospitalizations or antibiotics use. Upon arrival patient does not appears in distress, obvious URI symptoms/cough. Oxygenating well on RA. I retook temperature personally findings febrile at 100.0F. - Related Data Home Medications Medication Instructions Recorded Confirmed Omeprazole [PriLOSEC] 20 mg PO DAILY 04/26/14 07/18/19 Sertraline HCl [Zoloft] 100 mg PO DAILY 04/26/14 07/18/19 Terazosin [Hytrin] 5 mg PO BID 04/26/14 07/18/19 Atenolol [Tenormin] 50 mg PO DAILY 09/30/17 07/18/19 Cyanocobalamin (Vitamin B-12) 5,000 mcg PO DAILY 07/18/19 07/18/19 [Vitamin B-12] Escitalopram [Lexapro] 10 mg PO DAILY 07/18/19 07/18/19 Nitroglycerin Sl Tabs [Nitrostat] 0.4 mg SUBLINGUAL Q5M PRN 07/18/19 07/18/19 amLODIPine [Norvasc] 2.5 mg PO DAILY 07/18/19 07/18/19 Previous Rx's Medication Instructions Recorded Atorvastatin [Lipitor] 40 mg PO HS #30 tablet 10/01/17 Clopidogrel [Plavix] 75 mg PO DAILY #30 tab 07/20/19 Lisinopril 20 mg PO BID #60 tab 07/20/19 Azithromycin [Zithromax Z-pack] 0 mg PO DIRECTED #6 tab 08/15/19 Allergies Allergy/AdvReac Type Severity Reaction Status Date / Time MSG AdvReac BLURRED Uncoded 07/18/19 17:09 VISION, HEADACHE Review of Systems ROS Statement: Those systems with pertinent positive or pertinent negative responses have been documented in the HPI. ROS Other: All systems not noted in ROS Statement are negative. Past Medical History Past Medical History: Coronary Artery Disease (CAD), CVA/TIA, Eye Disorder, GERD/Reflux, Hyperlipidemia, Hypertension, Osteoarthritis (OA), Prostate Disorder, Sleep Apnea/CPAP/BIPAP Additional Past Medical History / Comment(s): TIFFANIE with O2 at 2L/NC at HS, R eye macular degeneration with injections, 09/2017 TIAx 2, hiatal hernia, constipation, migraines, BPH, urinary retention, diverticulosis, benign colon polyps, hypoglycemia. History of Any Multi-Drug Resistant Organisms: None Reported Past Surgical History: Appendectomy, Back Surgery, Heart Catheterization With S tent Additional Past Surgical History / Comment(s): L caratid endartectomy, PCI with stents, L4-L5 laminectomy/cage, colonoscopies/benign polypectomy, sinus surgery for polyps, pilonidal cyst surgery, abdominal abscess surgery, cystoscopy, bilateral cataract removals with lens implants. Past Anesthesia/Blood Transfusion Reactions: No Reported Reaction Date of Last Stent Placement:: 2000 Past Psychological History: No Psychological Hx Reported Smoking Status: Former smoker Past Alcohol Use History: None Reported Past Drug Use History: None Reported - Past Family History Mother Family Medical History: Dementia, Myocardial Infarction ([place]) Additional Family Medical History / Comment(s): Mother of dementia at the age of 73yrs. Father Family Medical History: Myocardial Infarction ([place]) Additional Family Medical History / Comment(s): Father had a [place] at the age of 73 yrs. Sister(s) Family Medical History: Cancer, Myocardial Infarction ([place]) Additional Family Medical History / Comment(s): 2 sisters lung and kidney ca,1 sister [place] Brother(s) Family Medical History: Cancer, Myocardial Infarction ([place]) Additional Family Medical History / Comment(s): 1 brother with lung cancer, 1 brother with colon cancer, 1 brother with bone cancer, 1 brother had a [place]. General Exam - General Exam Comments Initial Comments: General: The patient is awake and alert, in no distress, and does not appear acutely ill. Eye: +3 mm pupils are equal, round and reactive to light, extra-ocular mov ements are intact. No nystagmus. There is normal conjunctiva bilaterally. No signs of icterus. No photophobia Ears, nose, mouth and throat: There are moist mucous membranes and no oral lesions. Oropharynx was not erythematous there is no tonsillar enlargement exudates or lesions. Uvula midline. Tympanic membranes are not erythematous or is no effusions bulging or retraction. No tenderness to palpation of the mastoid. No anterior cervical lymphadenopathy. Rhinorrhea, clear and bilateral nares. No tripoding, no drooling. Neck: The neck is supple, there is no tenderness or JVD. No nuchal rigidity Cardiovascular: There is a regular rate and rhythm. No murmur, rub or gallop is appreciated. Respiratory: Lungs are clear to auscultation, respirations are non-labored, breath sounds are equal. No wheezes, stridor, rales, or rhonchi. No retractions or abdominal breathing. Musculoskeletal: Normal ROM, no tenderness. Strength 5/5. Sensation intact. Radial pulses equal bilaterally 2+. Neurological: A&O x 3. CN II-XII intact grossly, There are no obvious motor or sensory deficits. Coordination appears grossly intact. Speech appears normal, no muffling. Skin: Skin is warm and dry and no rashes or lesions are noted. No extremity edema Psychiatric: Cooperative Limitations: physical limitation Course Vital Signs 08/15/19 08/15/19 08/15/19 11:56 14:04 15:00 Temperature 98.4 F 100 F H Pulse Rate 65 55 L Respiratory 20 20 Rate Blood Pressure 133/60 174/68 O2 Sat by Pulse 95 96 Oximetry 08/15/19 15:16 Temperature Pulse Rate Respiratory 20 Rate Blood Pressure O2 Sat by Pulse Oximetry Medical Decision Making - Medical Decision Making 88-year-old male presenting today for chief complaint of cough. Patient was febrile on arrival he appears in no acute distress denies shortness of breath d enies chest pain. Patient has clear lung sounds. Chest x-ray revealed no focal infiltrates. Influenza testing negative. Patient does have mild leukopenia. Chronic anemia as well as low platelets. Patient baseline is near today values with slight decrease, could reflex viral syndrome, given patient cough, fever. Cannot r/o developing pneumonia. Discussed admission, due to age and fever, patient declined stating he would like to go home. Discussed case with Dr. Pickett who is agreeable to discharge with outpatient antibiotics and close f/u with primary care provider with strict return parameters. Patient discharged appearing well. - Lab Data Result diagrams: 08/15/19 13:17 08/15/19 13:17 Lab Results 08/15/19 08/15/19 08/15/19 Range/Units 13:17 13:17 13:17 WBC 3.5 L (3.8-10.6) k/uL RBC 3.70 L (4.30-5.90) m/uL Hgb 11.8 L (13.0-17.5) gm/dL Hct 34.6 L (39.0-53.0) % MCV 93.5 (80.0-100.0) fL MCH 31.8 (25.0-35.0) pg MCHC 34.0 (31.0-37.0) g/dL RDW 13.1 (11.5-15.5) % Plt Count 100 L (150-450) k/uL Neutrophils % (Manual) 61 % Band Neutrophils % 2 % Lymphocytes % (Manual) 23 % Monocytes % (Manual) 9 % Eosinophils % (Manual) 5 % Neutrophils # (Manual) 2.20 (1.3-7.7) k/uL Lymphocytes # (Manual) 0.81 L (1.0-4.8) k/uL Monocytes # (Manual) 0.32 (0-1.0) k/uL Eosinophils # (Manual) 0.18 (0-0.7) k/uL Nucleated RBCs 0 (0-0) /100 WBC Manual Slide Review Performed RBC Morphology Normal Sodium 136 L (137-145) mmol/L Potassium 3.9 (3.5-5.1) mmol/L Chloride 100 (98-107) mmol/L Carbon Dioxide 29 (22-30) mmol/L Anion Gap 7 mmol/L BUN 20 (9-20) mg/dL Creatinine 1.22 (0.66-1.25) mg/dL Est GFR (CKD-EPI)AfAm 61 (>60 ml/min/1.73 sqM) Est GFR (CKD-EPI)NonAf 52 (>60 ml/min/1.73 sqM) Glucose 101 H (74-99) mg/dL Plasma Lactic Acid Elie (0.7-2.0) mmol/L Calcium 8.6 (8.4-10.2) mg/dL Total Bilirubin 0.7 (0.2-1.3) mg/dL AST 22 (17-59) U/L ALT 12 (4-49) U/L Alkaline Phosphatase 81 (38-126) U/L Total Protein 6.5 (6.3-8.2) g/dL Albumin 3.8 (3.5-5.0) g/dL Influenza Type A RNA Not Detected (Not Detectd) Influenza Type B (PCR) Not Detected (Not Detectd) 08/15/19 Range/Units 13:17 WBC (3.8-10.6) k/uL RBC (4.30-5.90) m/uL Hgb (13.0-17.5) gm/dL Hct (39.0-53.0) % MCV (80.0-100.0) fL MCH (25.0-35.0) pg MCHC (31.0-37.0) g/dL RDW (11.5-15.5) % Plt Count (150-450) k/uL Neutrophils % (Manual) % Band Neutrophils % % Lymphocytes % (Manual) % Monocytes % (Manual) % Eosinophils % (Manual) % Neutrophils # (Manual) (1.3-7.7) k/uL Lymphocytes # (Manual) (1.0-4.8) k/uL Monocytes # (Manual) (0-1.0) k/uL Eosinophils # (Manual) (0-0.7) k/uL Nucleated RBCs (0-0) /100 WBC Manual Slide Review RBC Morphology Sodium (137-145) mmol/L Potassium (3.5-5.1) mmol/L Chloride (98-107) mmol/L Carbon Dioxide (22-30) mmol/L Anion Gap mmol/L BUN (9-20) mg/dL Creatinine (0.66-1.25) mg/dL Est GFR (CKD-EPI)AfAm (>60 ml/min/1.73 sqM) Est GFR (CKD-EPI)NonAf (>60 ml/min/1.73 sqM) Glucose (74-99) mg/dL Plasma Lactic Acid Elie 1.1 (0.7-2.0) mmol/L Calcium (8.4-10.2) mg/dL Total Bilirubin (0.2-1.3) mg/dL AST (17-59) U/L ALT (4-49) U/L Alkaline Phosphatase (38-126) U/L Total Protein (6.3-8.2) g/dL Albumin (3.5-5.0) g/dL Influenza Type A RNA (Not Detectd) Influenza Type B (PCR) (Not Detectd) Disposition Clinical Impression: Cough, Congestion of nasal sinus, Fever Disposition: HOME SELF-CARE Condition: Good Instructions (If sedation given, give patient instructions): Upper Respiratory Infection (ED) Additional Instructions: Please use medication as discussed. Please follow-up with family doctor in the next 2 days. Immediate return for any worsening symptoms, chest pain or SOB, fevers. Please return to emergency room if the symptoms increase or worsen or for any other concerns. Prescriptions: Azithromycin [Zithromax Z-pack] 0 mg PO DIRECTED #6 tab Is patient prescribed a controlled substance at d/c from ED?: No Referrals: Jefferson Day DO [Primary Care Provider] - 1-2 days Time of Disposition: 14:53
[2019-08-15] MEDS ORDERED: SODIUM CHLORIDE 0.9% 1,000 ML IV SCH (12:45)
--- NOTE | 2019-08-15 12:58 | XR ---
EXAMINATION TYPE: XR chest 2V DATE OF EXAM: 08/15/2019 COMPARISON: 07/18/2019 HISTORY: Shortness of breath TECHNIQUE: Frontal and lateral views of the chest are obtained. FINDINGS: Scattered senescent parenchymal changes noted. No evidence for infiltrate. No evidence for atelectasis. Heart size is stable. Mediastinal structures are stable and grossly unremarkable. No evidence for hilar prominence. Degenerative changes dorsal spine. IMPRESSION: 1. No evidence for acute pulmonary disease.
[2019-08-15 13:35] LABS: HCT 34.6 % (39.0-53.0); HGB 11.8 gm/dL (13.0-17.5); MCH 31.8 pg (25.0-35.0); MCV 93.5 fL (80.0-100.0); Platelet Count 100 k/uL (150-450); RDW 13.1 % (11.5-15.5); WBC 3.5 k/uL (3.8-10.6)
[2019-08-15 13:46] LABS: Albumin 3.8 g/dL (3.5-5.0); Calcium 8.6 mg/dL (8.4-10.2); Potassium 3.9 mmol/L (3.5-5.1); Total Bilirubin 0.7 mg/dL (0.2-1.3); Total Protein 6.5 g/dL (6.3-8.2)
[2019-08-15 14:04] VITALS: TEMP 100
[2019-08-15 14:37] LABS: Band Neutrophils % 2 %; Eosinophils # (M) 0.18 k/uL (0-0.7); Lymphocytes # (M) 0.81 k/uL (1.0-4.8); Monocytes # (M) 0.32 k/uL (0-1.0); Neutrophils % (M) 61 %; Nucleated Red Blood Cells 0 /100 WBC (0-0); Total Cells Counted 100
[2019-08-15 15:11] VITALS: BP 174/68; PULSE 55
== END 2019-08-15 15:17 | disposition home or self-care (01) ==
LOC: EC 11:52
DX: R05 Cough (principal); R09.81 Nasal congestion; R50.9 Fever, unspecified; K21.9 Gastro-esophageal reflux disease without esophagitis; I10 Essential (primary) hypertension; G47.33 Obstructive sleep apnea (adult) (pediatric); I25.10 Atherosclerotic heart disease of native coronary artery without angina pectoris; E78.5 Hyperlipidemia, unspecified; Z79.899 Other long term (current) drug therapy; Z91.02 Food additives allergy status; Z95.5 Presence of coronary angioplasty implant and graft; Z99.89 Dependence on other enabling machines and devices; Z86.73 Personal history of transient ischemic attack (TIA), and cerebral infarction without residual deficits; Z87.891 Personal history of nicotine dependence
CPT/HCPCS: 36415; 71046; 80053; 83605; 85025; 87040; 87502; 96360; 96361; 99283